=== PATIENT | female | born 1940 | race African-American/Black ===

== ENCOUNTER 2019-04-21 09:58 | Inpatient (IN) ==
--- NOTE | 2019-04-21 10:37 | Diag Imaging Result Doc PS360 ---
CHEST-PORTABLE - 04/21/2019 INDICATION: FLUID IN LUNGS COMPARISON: 01/28/2019 FINDINGS: There is probably a moderately large pleural effusion at the left lung base. There is a trace right pleural effusion. There is cardiomegaly and pulmonary vascular congestion. Opacity in the right midlung is indeterminate. There is a right chest port in good position. IMPRESSION: Trace right and moderate left pleural effusion. Significant cardiomegaly and pulmonary vascular congestion. Small indeterminate opacity in the right midlung. Electronically signed by Kerwin Magallon 04/21/2019 10:35 AM
[2019-04-21 11:03] LABS: BASO# 0.01 X1000 (0.0-0.2); BASO% 0.3 % (0.0-0.8); EOS# 0.08 X1000 (0.0-0.7); EOS% 2.7 % (0.0-10.0); HEMATOCRIT 34.6 % (37.0-47.0); LYMPH# 0.72 X1000 (1.2-3.4); LYMPH% 23.9 % (20.5-51.1); MCH 29.7 PG (27-31); MCHC 31.8 g/dL (33-37); MCV 93.5 FL (81-99); MONO# 0.49 X1000 (0.11-0.59); MONO% 16.3 % (1.7-9.3); MPV 9.7 FL (7.4-10.4); NEUT# 1.71 X1000 (1.4-6.5); NEUT% 56.8 % (42.2-75.2); PLT 283 X1000 (130-400); RDW 17.3 % (11.5-14.5); WBC 3.01 X1000 (4.8-10.8)
[2019-04-21 11:28] LABS: ALB/GLOB RATIO 1.4; ALBUMIN 2.9 g/dL (3.5-5.0); CALCIUM 7.3 mg/dL (8.8-10.2); CREATININE 1.1 mg/dL (0.5-0.9); POTASSIUM 4.3 mmol/L (3.5-5.1); TOTAL BILIRUBIN 0.38 mg/dL (0.20-1.00)
[2019-04-21 12:17] LABS: INR 0.99; PROTIME 13.9 Seconds (11.0-16.0)
[2019-04-21 12:18] LABS: PTT 32.4 Seconds (22.3-41.8)
--- NOTE | 2019-04-21 12:58 | EKG Report ---
Test Performed on : 04/21/2019 10:12:04 AM Test Reason : ED. No order in [place] Blood Pressure : / mmHG Vent. Rate : 086 BPM Atrial Rate : 086 BPM P-R Int : 106 ms QRS Dur : 126 ms QT Int : 380 ms P-R-T Axes : -08 -18 016 degrees QTc Int : 454 ms Sinus rhythm. with short CT Right bundle branch block Abnormal ECG When compared with ECG of 18-JUN-2018 08:38, CT interval has decreased Unconfirmed Result
--- NOTE | 2019-04-21 13:10 | PROVIDER DOCUMENTATION ---
This chart was entered by Tsering Cummins Scribe, acting as scribe for Ginny Altman MD. HPI-Respiratory General - General Chief Complaint: Shortness of Breath Stated Complaint: SOB,FLUID BUILD UP /LUNG Time Seen by Provider: 04/21/19 10:06 Source: patient Allergies/Adverse Reactions: Patient Allergies Allergy/AdvReac Type Severity Reaction Status Date / Time codeine Allergy Mild ITCHING Verified 04/21/19 10:45 Home Medications: Home Medication List Medication Instructions Recorded Confirmed Last Taken Type Alprazolam 1 mg PO PRN PRN 02/18/15 04/21/19 01/27/19 16:00 History 1 Chlorthalidone 0.5 tab PO DAILY 12/17/16 04/21/19 04/20/19 History Calcium & Magnesium Carbonate 120 mg PO DAILY 01/14/19 04/21/19 01/27/19 08:00 History [Antacid Gelcap] 120 Cetirizine [Zyrtec] 10 mg PO DAILY 01/14/19 04/21/19 04/20/19 History Cholecalciferol (Vitamin D3) 2,000 unit PO DAILY 01/14/19 04/21/19 01/27/19 08:00 History [D3-2000] 1999 Cyanocobalamin (Vitamin B-12) 1,000 mcg INJ DIRECTED 01/14/19 04/21/19 01/21/19 History [Vitamin B-12] 1000 Hydrocodone/Acetaminophen [[place] 1 ea PO PRN PRN 01/25/19 04/21/19 04/21/19 H istory 7.5-325 Tablet] Mv, Min #36/Iron,Carbonyl/FA 1 ea PO DAILY 01/25/19 04/21/19 04/20/19 History [Geritol Complete Tablet] Fluticasone 27.5 Mcg Nasal Spr 1 spray INH PRN PRN 04/21/19 04/21/19 Unknown History [Veramyst Nasal [place]] Metoclopramide [Reglan] 1 tab PO Q6H PRN 04/21/19 04/21/19 Unknown History Mirtazapine 1 tab PO QHS 04/21/19 04/21/19 04/20/19 History Promethazine [Phenergan] 1 tab PO Q6H PRN 04/21/19 04/21/19 Unknown History Zolpidem [Ambien] 1 tab PO Q 04/21/19 04/21/19 04/20/19 History - History of Present Illness-Resp Nature of Presenting Problem: Patient is a 78 year old female who presents with shortness of breath. States shortness of breath has gradually worsened. Report history of breast cancer which is monitored by Dr. Gonzalez. States having 9 rounds of chemo. Family states patient had a chest tube 5 weeks ago placed by Dr. Chou due to fluid build up on right lung. Denies fever. States seeing Dr. Gonzalez and Dr. Chou yesterday. Quality of Pain: reports: tightness Severity in ED: reports: mild Onset/Duration: reports: gradual Timing: reports: still present, getting worse Associated Symptoms: reports: shortness of breath Similar Symptoms Previously?: Yes Recently seen or treated by another doctor?: Yes Review of Systems - Adult - REVIEW OF SYSTEMS - ADULT Constitutional: reports: no symptoms reported. denies: chills, fever, fatique Eyes: reports: no symptoms reported Ears, Nose, Mouth & Throat: reports: no symptoms reported Cardiovascular: reports: no symptoms reported. denies: chest pain, irregular heart rate, palpitations Respiratory: reports: see HPI, shortness of breath. denies: cough, wheezing Gastrointestinal: reports: no symptoms reported Genitourinary: reports: no symptoms reported Musculoskeletal: reports: no symptoms reported Integumentary: reports: no symptoms reported Neurological: reports: no symptoms reported Psychiatric: reports: no symptoms reported Endocrine: reports: no symptoms reported Hematologic/Lymphatic: reports: no symptoms reported Allergic/Immunologic: reports: no symptoms reported All Other Systems: Reviewed and Negative Past History - Adult - PAST MEDICAL HISTORY-ADULT Review of Records: reports: Old Records Reviewed, Nursing Assessment Review, Medications Reviewed, Social history reviewed & non-contributory. Major Childhood Illnesses: reports: denies history Cardiovascular: reports: HTN Respiratory: reports: denies history Gastrointestinal: reports: denies history Obstetrical/Gynecological: reports: denies history Genitourinary: reports: kidney disease Musculoskeletal: reports: denies history Neurological: reports: denies history Psychiatric: reports: denies history Endocrine/Immune: reports: denies history Other Conditions: reports: other cancer (breast) - PRIOR SURGERIES/PROCEDURES Surgical/Procedure History: reports: appendectomy, cholecystectomy, hysterectomy , joint replacement (bilateral knees and hips), gastric bypass, other (cataract) - IMMUNIZATION STATUS Childhood Immunizations: See Nurse Assessment Flu Vaccine: See Nurse Assessment - FAMILY HISTORY Family History: aortic disease - SOCIAL HISTORY Smoking: denies Substance Use: denies Living Situation: family Physical Exam-General - PHYSICAL EXAM-ADULT Initial Vital Signs Reviewed: Yes - CONSTITUTIONAL General Appearance: alert, no apparent distress. negative: lethargic - HEAD, EARS, NOSE, MOUTH & THROAT HENMT: normocephalic/atraumatic, moist mucous membranes. negative: angioedema - RESPIRATORY Respiratory: chest non-tender, decreased breath sounds (bilateral), other (port to right side chest). negative: respiratory distress, crackles, rhonchi - CARDIOVASCULAR Cardiovascular: normal peripheral pulses, regular rate, rhythm. negative: tachycardia - GASTROINTESTINAL (ABDOMEN) Abdominal Exam: normal bowel sounds, non tender, soft. negative: guarding - MUSCULOSKELETAL Extremity: non-tender, other (swelling to bilateral lower extremities). negative: deformity, erythema - SKIN Integumentary: normal color, normal turgor, warm/dry. negative: cyanosis, ecchymosis, erythema, rash - NEUROLOGIC Neurologic: grossly normal. negative: aphasia, facial droop - PSYCHIATRIC Psych/Mental Status: normal mood/affect, oriented x 3. negative: anxious Progress - PLAN OF CARE/RESULTS Progress/Plan/Lab Results: Vital Signs - 8 hr 04/21/19 10:06 04/21/19 10:13 04/21/19 10:17 Temperature 98.4 F Pulse Rate 92 H 82 Respiratory Rate 17 19 Blood Pressure 182/83 212/107 O2 Sat by Pulse Oximetry 94 L 97 98 04/21/19 10:30 04/21/19 10:43 04/21/19 11:00 Temperature Pulse Rate 80 80 80 Respiratory Rate 29 H 24 21 Blood Pressure 231/95 O2 Sat by Pulse Oximetry 98 96 96 04/21/19 11:01 04/21/19 11:30 04/21/19 11:31 Temperature Pulse Rate 73 75 78 Respiratory Rate 13 25 H 13 Blood Pressure 231/93 200/98 O2 Sat by Pulse Oximetry 96 95 96 Laboratory Results - last 24 hr 04/21/19 04/21/19 04/21/19 10:42 10:42 11:59 WBC 3.01 L RBC 3.70 L Hgb 11.0 L Hct 34.6 L MCV 93.5 MCH 29.7 MCHC 31.8 L RDW Std Deviation 17.3 H Plt Count 283 MPV 9.7 Immature Gran % (Auto) 0.0 Neut % (Auto) 56.8 Lymph % (Auto) 23.9 Perkins % (Auto) 16.3 H Eos % (Auto) 2.7 Baso % (Auto) 0.3 Immature Gran # (Auto) 0.00 Neut # (Auto) 1.71 Lymph # (Auto) 0.72 L Perkins # (Auto) 0.49 Eos # (Auto) 0.08 Baso # (Auto) 0.01 PT 13.9 INR 0.99 PTT (Actin FS) 32.4 Sodium 140 Potassium 4.3 Chloride 110 H Carbon Dioxide 22 L Anion Gap 8 BUN 13 Creatinine 1.1 H Estimated GFR/1.73 m2 58 BUN/Creatinine Ratio 12 Glucose 82 Calculated Osmolality 279 Calcium 7.3 L Total Bilirubin 0.38 AST 36 H ALT 15 Alkaline Phosphatase 59 Total Protein 5.0 L Albumin 2.9 L Globulin 2.1 Albumin/Globulin Ratio 1.4 Orders Category Date Time Status Admit - [facility] Routine AdmDCTranf 04/21/19 13:16 Active Activity - Up with Assistance ORDERED Care 04/21/19 13:16 Active Intake and Output-Strict ORDERED Care 04/21/19 13:16 Active Nursing- Assist w/ IS as order ORDERED Care 04/21/19 13:16 Active Nursing- MD Consult Request ROUTINE Care 04/21/19 12:15 Active Nursing- MD Consult Request ROUTINE Care 04/21/19 13:16 Active Vital Signs Order Q 4-HR ASSESS Care 04/21/19 13:16 Active Z-Document. for Tele Applied ORDERED Care 04/21/19 13:16 Completed MD [Physician/Provider Consults] Routine Cons 04/21/19 12:14 Ordered Physician/Provider Consults Routine Cons 04/21/19 13:16 Ordered CHEST-PORTABLE [RAD] Stat Exams 04/21/19 10:22 Completed CBC WITH DIFF [HEME] Routine Lab 04/22/19 06:00 Ordered CBC WITH DIFF [HEME] Stat Lab 04/21/19 10:42 Completed COMPREHENSIVE METABOLIC PANEL [CHEM] Routine Lab 04/22/19 06:00 Ordered COMPREHENSIVE METABOLIC PANEL [CHEM] Stat Lab 04/21/19 10:42 Completed PT [PROTIME WITH INR] [COAG] Stat Lab 04/21/19 11:59 Completed PTT [COAG] Stat Lab 04/21/19 11:59 Completed Acetaminophen [Tylenol] Med 04/21/19 13:16 Active 650 mg PO Q6H PRN PRN Ondansetron [Zofran] Med 04/21/19 13:16 Active 4 mg IV Q4H PRN PRN Incentive Spirometer Routine Oth 04/21/19 13:16 Active Oxygen Device Routine Oth 04/21/19 13:16 Active Telemetry [OM.EQ] Routine Oth 04/21/19 13:16 Active Transfer/Admit Order [TRANSFER] Routine Transfer 04/21/19 12:13 Completed Result Diagrams: 04/21/19 10:42 04/21/19 10:42 - EKG 1 Time of EKG reading by physician:: 10:12 EKG Read and Signed by:: Ginny Altman EKG Interpretation (*Must complete 3 of following elements*): Abnormal Rate: 86 Rhythm: sinus rhythm with short [place]: normal QRS: RBB FL Interval: normal Comments: abnormal ECG - XRAY 1 XRAY Study: Chest Impression: See EMR Report ( CHEST-PORTABLE - 04/21/2019 INDICATION: FLUID IN LUNGS COMPARISON: 01/28/2019 FINDINGS: There is probably a moderately large pleural effusion at the left lung base. There is a trace right pleural effusion. There is cardiomegaly and pulmonary vascular congestion. Opacity in the right midlung is indeterminate. There is a right chest port in good position. IMPRESSION: Trace right and moderate left pleural effusion. Significant ca rdiomegaly and pulmonary vascular congestion. Small indeterminate opacity in the right midlung. Electronically signed by Kerwin Magallon 04/21/2019 10:35 AM 04/21/19 1035 Interpreting Physician: Kerwin Magallon MD Dictated Date/Time: 04/21/19 1034 cc: Ginny Altman MD; Dexter Reeves MD) - CONSULTS/PCP/HOSPITALIST Notification #1 *Consult/PCP/Hospitalist*: KANCHAN Rea for Hospitalist Time Discussed: 11:38 Reason/Comments: Dr. Altman consulted with Rona about patient. Consult Disposition: other (Rona states radiologist can do a thoracentesis.) #2 Consult: KANCHAN Rea for Hospitalist Time Discussed: 12:16 Reason/Comments: Dr. Altman consulted with Rona about patient. Consult Disposition: other (Rona states Dr. Gonzalez wants patient admitted and Dr. Stephenson to do a thoracentesis) Departure - Departure Date of Disposition Decision: 04/21/19 Time of Disposition Decision: 11:38 DIAGNOSIS: Pleural effusion, Dyspnea Disposition: ADMITTED INPATIENT 09 Certified Medical Emergency: Emergent Condition: Fair - Critical Care Note This patient required my direct & personal management of CC.: No Attestation - Physician/ MARY Attestation The physician spent face to face time with patient:: Yes Advanced Practice Provider documentation review:: Supervising physician onsite and consulted in the evaluation and care of this patient. The physician did have a face to face encounter with the patient. This chart was documented by the indicated scribe, (Tsering Cummins Scribe) and accurately reflects the services I performed and decisions made by Agapito iqbal Mai Huu, MD, as attested by the provider's signature.
[2019-04-21] MEDS ORDERED: ZOFRAN IV PRN (13:16)
[2019-04-21] MEDS ORDERED: TYLENOL PO PRN (13:16)
[2019-04-21] MEDS ORDERED: PATIENT'S OWN MED NAS PRN (15:05)
[2019-04-21] MEDS ORDERED: XANAX PO PRN (15:05)
[2019-04-21] MEDS ORDERED: REGLAN PO PRN (15:05)
[2019-04-21] MEDS ORDERED: NORCO-7.5 PO PRN (15:05)
[2019-04-21] MEDS ORDERED: NON-FORMULARY MED (Cyanocobalamin (Vitamin B-12) [Vitamin B-12] 1,000 MCG) INJ SCH (15:15)
--- NOTE | 2019-04-21 15:29 | HISTORY AND PHYSICAL ---
ONCOLOGIST: Dr. Gonzalez. PRIMARY CARE PROVIDER: Dexter Reeves MD. CHIEF COMPLAINT: Shortness of breath. HISTORY OF PRESENT ILLNESS: Ms. Lama is a 78-year-old female who carries a past medical history of metastatic left breast cancer with a metastatic pleural effusion on the right, status post PleurX catheter and discontinuation of PleurX catheter, chronic kidney disease stage 3, arthritis, hypertension, who was brought in to the ED by her daughter secondary to dyspnea on exertion. She had seen Dr. Gonzalez yesterday and was given instructions that if she continued to have worsening shortness of breath to come to the ED. Her last chemo was 2 weeks ago. Her next chemo is this coming Thursday. She also complained of hurting on the left side of her chest. No fever, chills, cough, nausea, vomiting, diarrhea, cardiac type chest pain, syncopal episodes. She did report intermittent lower extremity edema that is nonpitting. Workup in the ED revealed a trace right and moderate left pleural effusion, significant cardiomegaly and pulmonary vascular congestion. After speaking with Dr. Gonzalez, it was felt that the patient would need to be admitted and place another PleurX catheter drain. However, the patient is really not on board with having another PleurX catheter drain put in place. I did explain to her that she would need to come in for frequent draining if she did not have a drain in place. She will talk it over with Dr. Gonzalez as well as Dr. Stepehnson and her daughter who was at bedside. REVIEW OF SYSTEMS: Twelve-point review of systems completely negative except for those mentioned in HPI. PAST MEDICAL HISTORY: 1. 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 2. Hypertension. 3. Chronic kidney disease. 4. Arthritis. PAST SURGICAL HISTORY: 1. Placement of a right PleurX catheter that has since been discontinued, as well as placement of a right IJ Port-A-Cath. 2. Right-sided thoracentesis. 3. Gastric bypass surgery. 4. Bilateral hip arthroplasty. 5. Bilateral knee arthroplasty. SOCIAL HISTORY: She has a supportive daughter at the bedside. Denies any tobacco, alcohol, or illicit drug use. She is . FAMILY HISTORY: Noncontributory. ALLERGIES: Codeine. HOME MEDICATIONS: Have not been verified. PHYSICAL EXAMINATION: VITAL SIGNS: Temperature 97.9 degrees, heart rate 82, respirations 18, blood pressure was 190/78, O2 is 97% on room air. GENERAL: Ms. Lama is a 78-year-old female who is lying in bed, in no acute distress, complaining of being hungry. HEENT: Atraumatic, normocephalic. PERRL. NECK: Supple. Trachea midline. CARDIOVASCULAR: S1, S2 appreciated. No murmurs, gallops, rubs noted. RESPIRATORY: Lung sounds bilaterally decreased in the bases. No rales, rhonchi, or wheezes. GI: Soft, nontender, nondistended. Positive bowel sounds 4 quadrants. EXTREMITIES: She does have bilateral lower extremity edema that is nonpitting. NEUROLOGIC: She is awake, alert, and oriented. Follows commands. Moves all extremities. DIAGNOSTIC DATA: Chest x-ray: Trace right and a moderate left pleural effusion. Significant cardiomegaly and pulmonary vascular congestion. Small intermediate opacity in the right mid lung. White count is 3, hemoglobin and hematocrit 11 and 34, platelet count is 283,000. Sodium 140, potassium 4.3, BUN 13, creatinine 1.1, blood glucose is 82, AST 36. ASSESSMENT AND PLAN: 1. Known left metastatic breast cancer with a recurrent right pleural effusion that has now resolved. She now has a left malignant pleural effusion. She is status post PleurX drain catheter placement and removal. We have consulted Dr. Stephenson to see about placing another PleurX catheter drain. However, the patient is hesitant at the moment. We will have Dr. Gonzalez and Dr. Stephenson speak with her about the need for a drain. 2. Hypertension. Patient had recently been taken off her antihypertensives. 3. Chronic kidney disease, stable. 4. Arthritis. Aware. 5. Further recommendation to follow physician evaluation, laboratory and diagnostic data. Patient seen and examined by me face to face, all the laboratory, vitals and images were reviewed, patient presented to the emergency department with shortness of breath, that has been going on for a few days, she has a history of metastatic breast cancer, not to long ago she had a catheter placed on the right side of her thorax but has been removed already, but now she is having shortness of breath mostly with physical activity, X ray showed left pleural effusion, case has been discussed with Dr Gonzalez, surgery department will be consulted to probably put a drain on the left side, on my physical exam she is not in acute distress, has elevated blood pressure, decreased breath sounds on the left side with rales bilaterally at the bases, I agree with the rest of the GRANULATOR TENDER's assessment and plan, Porter Nugent MD. Dictated by KANCHAN Kendall for Porter Russell MD cc: MD Johnathan Dubois MD Matthew L. Figh, MD MTDD
[2019-04-21] MEDS: APRESOLINE IV PRN (16:03)
--- NOTE | 2019-04-21 17:16 | GENERAL SURGERY CONSULTATION ---
DATE: 04/21/2019 REQUESTING PHYSICIAN: Dr. Gonzalez. REASON FOR CONSULT: Left pleural effusion, likely malignant. HISTORY OF PRESENT ILLNESS: This is a 78-year-old female with a past medical history of metastatic left breast cancer and metastatic pleural effusion on the right side with a PleurX catheter placement and subsequent removal. She also has chronic kidney disease, arthritis, hypertension. She was brought to the emergency department by her daughter for shortness of breath. She had seen Dr. Gonzalez yesterday for this. She has been on chemo. She does report hurting in her back and her chest pain. She was seen and had a chest x-ray showed worsening effusions on the left side. Dr. Gonzalez thought she needed to be admitted to have her PleurX catheter placed. I have discussed the case with Dr. Gonzalez. She is doing okay right now. PAST MEDICAL HISTORY: 1. Metastatic breast cancer. 2. Hypertension. 3. Chronic kidney disease. 4. Arthritis. PAST SURGICAL HISTORY: Right-sided thoracentesis, right-sided PleurX catheter and removal, gastric bypass, bilateral hip surgery, bilateral knee surgery. SOCIAL HISTORY: Lives with daughter. FAMILY HISTORY: Reviewed with patient and noncontributory. ALLERGIES: Codeine. HOME MEDICATIONS: Reviewed. REVIEW OF SYSTEMS: A full 10 point review of systems obtained. Negative except as specified in HPI. PHYSICAL EXAMINATION: Vital Signs: Patient is currently afebrile. Her vital signs are stable. General: No acute distress. Alert, interactive, chronically ill female, looks stated age. HEENT: Normocephalic, atraumatic. Pupils equal, round, reactive to light. Mucous membranes moist. Oropharynx benign. Neck: Supple. Trachea midline. Cardiovascular: Regular rate and rhythm. Lungs: Some decreased breath sounds on the left. No increased labored breathing. Abdomen: Soft, nontender, nondistended. Extremities: Moves all extremities. Neurologic: Grossly intact. Skin: No signs of jaundice. Vascular: All extremities perfused. LABORATORY: Reviewed. Chest x-ray reviewed. ASSESSMENT AND PLAN: This is a 78-year-old female with malignant left pleural effusion. Malignant left pleural effusion. At this time, we will plan on placing a PleurX catheter. The patient has been through it before, she is aware. We discussed the risks, benefits, alternatives. We will plan on doing this tomorrow. We will keep her NPO after midnight and schedule the surgery for the morning. cc: Akira Stephesnon MD MTDD
[2019-04-21] MEDS ORDERED: AMBIEN PO SCH (21:00)
[2019-04-21] MEDS ORDERED: REMERON PO SCH (21:00)
--- NOTE | 2019-04-22 06:32 | GENERAL SURGERY PROGRESS NOTE ---
DATE: 04/22/2019 SUBJECTIVE: Patient seems to be doing okay. No major changes. OBJECTIVE: Vital signs: Patient is currently afebrile. Her vital signs are stable. General exam: No acute distress. HEENT: Normocephalic, atraumatic. Pupils equal, round, reactive to light. Mucous membranes moist. Oropharynx benign. Neck: Supple. Trachea midline. Cardiovascular: Regular rate and rhythm. Lungs: Decreased breath sounds noted on the left. No increased labored breathing. Abdomen: Soft, nontender, nondistended. Extremities: Moves all extremities. Neurologic: Grossly intact. Skin: No signs of jaundice. Vascular: All extremities perfused. LABORATORY: None this morning. ASSESSMENT AND PLAN: A 78-year-old female with recurrent left-sided possible malignant effusion. Effusion on the left. Will plan on placement of a PleurX catheter today. The risks, benefits, and alternatives were discussed. Consent will be obtained from the patient. Will plan on surgical intervention today. cc: Akira Stephenson MD
[2019-04-22 06:44] LABS: BASO# 0.01 X1000 (0.0-0.2); BASO% 0.3 % (0.0-0.8); EOS% 3.2 % (0.0-10.0); HEMATOCRIT 36.2 % (37.0-47.0); HEMOGLOBIN 11.6 g/dL (12.0-16.0); LYMPH# 0.71 X1000 (1.2-3.4); LYMPH% 23.1 % (20.5-51.1); MCV 93.5 FL (81-99); MONO# 0.57 X1000 (0.11-0.59); MONO% 18.5 % (1.7-9.3); MPV 9.8 FL (7.4-10.4); NEUT# 1.69 X1000 (1.4-6.5); NEUT% 54.9 % (42.2-75.2); PLT 299 X1000 (130-400); RBC 3.87 XMIL (4.2-5.4); RDW 17.2 % (11.5-14.5); WBC 3.08 X1000 (4.8-10.8)
[2019-04-22 07:02] LABS: AGAP 11; ALBUMIN 2.8 g/dL (3.5-5.0); ALKALINE PHOSPHATASE 61 U/L (32-104); BUN 12 mg/dL (8-22); CALCIUM 7.9 mg/dL (8.8-10.2); CHLORIDE 111 mmol/L (98-107); COSMO 284; ESTIMATED GFR > 60; GLUCOSE 80 mg/dL (70-104); GOT 29 U/L (10-30); GPT 15 U/L (10-36); POTASSIUM 3.7 mmol/L (3.5-5.1); SODIUM 143 mmol/L (136-145); TCO2 21 mmol/L (25-35); TOTAL BILIRUBIN 0.39 mg/dL (0.20-1.00); TOTAL PROTEIN 5.7 g/dL (6.3-8.3)
[2019-04-22 08:07] LABS: BILIRUBIN URINE NEGATIVE (NEGATIVE); BLOOD URINE NEGATIVE (NEGATIVE); COLOR STRAW; GLUCOSE URINE NEGATIVE (NEGATIVE); KETONE URINE NEGATIVE (NEGATIVE); LEUKOCYTES URINE NEGATIVE (NEGATIVE); NITRITE URINE NEGATIVE (NEGATIVE); PH URINE 7.5; PROTEIN URINE NEGATIVE (NEGATIVE); SP GRAVITY URINE 1.007; TURBIDITY URINE CLEAR (CLEAR); URINE SOURCE CLEAN CATCH; UROBILINOGEN URINE NORMAL (NORMAL)
[2019-04-22 08:09] LABS: UR EPITHELIAL CELLS <10 /HPF (<10); URINE BACTERIA NEGATIVE /HPF; URINE RBC <10 /HPF (<10); URINE WBC <10 /HPF (<10)
[2019-04-22] MEDS ORDERED: FENTANYL ONE (08:52)
[2019-04-22] MEDS ORDERED: DIPRIVAN 1% ONE (08:53)
[2019-04-22] MEDS ORDERED: KEFZOL 1 GM/D5W 1 GM/50 ML IVPB IV ONE (09:00)
[2019-04-22] MEDS ORDERED: HYGROTON PO SCH (09:00)
[2019-04-22] MEDS ORDERED: VITAMIN D PO SCH (09:00)
[2019-04-22] MEDS: DILAUDID ONE ×2 (11:02→11:13)
[2019-04-22] MEDS: APRESOLINE IV PRN (11:49)
--- NOTE | 2019-04-22 13:17 | OPERATIVE NOTE ---
PROCEDURE DATE: 04/22/2019 PREOPERATIVE DIAGNOSIS: Left pleural effusion, likely malignant. POSTOPERATIVE DIAGNOSIS: Left pleural effusion, likely malignant. PROCEDURE: Left PleurX catheter placement. SURGEON: Akira Stephenson MD. MEASUREMENT ANALYST: None. ANESTHESIA: General tracheal. INTRAOPERATIVE FINDINGS: Over a liter of bloody fluid drained from the chest. ESTIMATED BLOOD LOSS: 5 mL. SPECIMEN REMOVED: Fluid. BRIEF HISTORY: A 78-year-old female with metastatic breast cancer. She had recurrent effusions on left side so was admitted for drainage and PleurX catheter. The risks, benefits, and alternatives were discussed. All questions answered. DESCRIPTION OF PROCEDURE: After informed consent was obtained, the patient brought to the operative theatre, transferred to the operating table, placed in supine position. General endotracheal anesthesia was then performed without complication. A formal time-out was then performed confirming patient, date and procedure. All were in agreement. At that time, attention directed to the left chest. In the anterior axillary line at the 5th intercostal space, we used local anesthetic to anesthetize the skin, made a small stab incision. I directed a needle into the chest, aspirated bloody fluid, passed a wire into it. We then created and tunneled the PleurX catheter from the inferior part of the anterior axillary line on the left side to that initial insertion site, exchanged it over the wire in the typical Seldinger technique to place the catheter in the chest, connected to the vacuum canister and drained over a liver out of fluid. We secured it in place in a standard fashion and placed a sterile dressing. The patient tolerated procedure. cc: Akira Stephenson MD
[2019-04-22 14:36] VITALS: BP 106/54
--- NOTE | 2019-04-23 06:01 | DISCHARGE SUMMARY ---
ADMISSION DATE: 04/21/2019 DISCHARGE DATE: 04/22/2019 DISCHARGE DIAGNOSES: 1. Large left pleural effusion status post left PleurX catheter placement. 2. Left metastatic breast cancer with recurrent right pleural effusion that has now resolved. 3. Hypertension. 4. Chronic kidney disease. 5. Arthritis. PROCEDURES PERFORMED: Chest x-ray dated 04/21/2019. Impression: Trace right and moderate left pleural effusion, significant cardiomegaly and pulmonary vascular congestion, small indeterminate opacity in the right mid lung, left pleural effusion, status post left PleurX catheter placement dated 04/22/2019. HOSPITAL COURSE: A 78-year-old female with a past medical history of metastatic breast cancer with reported pleural effusion mostly on the right side status post PleurX catheter at discontinuation of this catheter before. Also, CKD stage 3, arthritis and hypertension admitted on 04/21/2019. She was brought to the emergency department by her brother secondary to shortness of breath mostly during physical activity. She had seen Dr. Gonzalez the day before yesterday. I was given instructions that if she continues to have worsening shortness of breath to come to the ED. She also complained of hurting on the left side of the chest. No fever. No chills. No cough, nausea, vomiting, diarrhea, cardiac type chest pain, or syncopal episode. She did report intermittent lower extremity edema that is nonpitting. A workup in the emergency department showed a moderate left pleural effusion, significant cardiomegaly, and pulmonary vascular congestion. We notified Dr. Gonzalez about these findings and he requested to hospitalize the patient, and ask Surgery to place a PleurX catheter which has been placed today without any kind of complication. It looks like over a L of bloody fluid has been drained at the moment of the drain placement. She is feeling much better. I had a conversation with Dr. Gonzalez and also Dr. Stephenson about this patient today. We have decided to discharge this patient home with follow-up by both Surgery Department and Hematology/Oncology Department. I already talked to the social problems specialist, and home health has been set up already so they can take care of the drain. PHYSICAL EXAMINATION: Temperature 97.9 degrees, pulse 85, respiratory rate 16, blood pressure 128/56, oxygen saturation 100% on room air. HEENT: Head normocephalic. No trauma. PERRLA. Neck: Supple. No JVD. No masses. Central trachea. Chest: Clear to auscultation. No wheezing. No rales. Abdomen: Soft, nontender, and nondistended. No hepatosplenomegaly. Chest: Clear to auscultation. There is some crepitus at the bases with the left PleurX catheter that looks fine. No signs of bleeding or drainage around it. There is nonpitting edema bilaterally. Neurological: The patient is awake, alert, and oriented. She is following commands. She moves all 4 extremities. She is able to recognize family members at the bedside. LABORATORY: WBC 3, hemoglobin 11.6, hematocrit 36.2, and platelet 299,000. Sodium 143, potassium 3.7, chloride 111, bicarbonate 21, BUN 12, creatinine 1, glucose 80, calcium 7.9, and albumin 2.8. DISCHARGE MEDICATIONS: 1. Alprazolam 1 mg p.o. as needed. 2. Calcium and magnesium carbonate 120 mg p.o. daily. 3. Cetirizine 10 mg p.o. daily. 4. Chlorthalidone 12.5 mg p.o. daily. 5. Vitamin D3 2000 units p.o. daily. 6. Vitamin B12 1000 mcg injectable as directed. 7. Fluticasone 27.5 mcg nasal spray as needed. Senath 7.5/325 tablets every 8 hours as needed. 8. Reglan 1 tablet p.o. q.6 hours as needed nausea and vomiting. 9. Mirtazapine 50 mg p.o. at bedtime. 10. Geritol Complete tablet p.o. daily. 11. Phenergan 25 mg p.o. q.6 hours as needed for nausea and vomiting. 12. Ambien 10 mg p.o. at bedtime. TIME SPENT: Time discharging this patient 25 minutes. cc: Porter Russell MD
== END 2019-04-22 15:43 | disposition home health service (06) | DRG 598 ==
LOC: ED 09:58 → 4N 12:42
PROVIDERS: ATTEND Internal Medicine
CPT/HCPCS: 71010; 71045; 80053; 81001; 85025; 85610; 85730; 93005; 94761; 94799; 99285; A9270; C1729; J0360; J0690; J1170; J3010

== ENCOUNTER 2019-05-31 00:24 | Inpatient (IN) ==
[2019-05-31 03:00] LABS: BASO# 0.01 X1000 (0.0-0.2); BASO% 0.3 % (0.0-0.8); EOS# 0.02 X1000 (0.0-0.7); EOS% 0.6 % (0.0-10.0); HEMATOCRIT 42.8 % (37.0-47.0); HEMOGLOBIN 13.6 g/dL (12.0-16.0); LYMPH# 0.32 X1000 (1.2-3.4); LYMPH% 9.6 % (20.5-51.1); MCH 29.8 PG (27-31); MCHC 31.8 g/dL (33-37); MCV 93.7 FL (81-99); MONO# 0.11 X1000 (0.11-0.59); MONO% 3.3 % (1.7-9.3); MPV 10.4 FL (7.4-10.4); NEUT# 2.86 X1000 (1.4-6.5); NEUT% 86.2 % (42.2-75.2); PLT 312 X1000 (130-400); RBC 4.57 XMIL (4.2-5.4); RDW 15.4 % (11.5-14.5); WBC 3.32 X1000 (4.8-10.8)
[2019-05-31] MEDS ORDERED: LEVAQUIN 750 MG/D5W 750 MG/150 ML IVPB IV ONE (03:22)
--- NOTE | 2019-05-31 03:22 | PROVIDER DOCUMENTATION ---
This chart was entered by Megha Morrow Scribe, acting as scribe for Berna Mendoza DO. HPI-Respiratory General - General Chief Complaint: Shortness of Breath Stated Complaint: sob Time Seen by Provider: 05/31/19 01:05 Source: patient Allergies/Adverse Reactions: Patient Allergies Allergy/AdvReac Type Severity Reaction Status Date / Time codeine Allergy Mild ITCHING Verified 05/31/19 02:49 Home Medications: Home Medication List Medication Instructions Recorded Confirmed Last Taken Type Alprazolam 1 mg PO PRN PRN 02/18/15 05/31/19 01/27/19 16:00 History 1 Calcium & Magnesium Carbonate 120 mg PO DAILY 01/14/19 05/31/19 01/27/19 08:00 History [Antacid Gelcap] 120 Cetirizine [Zyrtec] 10 mg PO DAILY 01/14/19 05/31/19 04/20/19 History Cholecalciferol (Vitamin D3) 2,000 unit PO DAILY 01/14/19 05/31/19 01/27/19 08:00 History [D3-2000] 1999 Cyanocobalamin (Vitamin B-12) 1,000 mcg INJ DIRECTED 01/14/19 05/31/19 History [Vitamin B-12] 1000 Mv, Min #36/Iron,Carbonyl/FA 1 ea PO DAILY 01/25/19 05/31/19 04/20/19 History [Geritol Complete Tablet] Fluticasone 27.5 Mcg Nasal Spr 1 spray INH PRN PRN 04/21/19 05/31/19 Unknown History [Veramyst Nasal Nicolaus] Metoclopramide [Reglan] 1 tab PO Q6H PRN 04/21/19 05/31/19 Unknown History Mirtazapine 1 tab PO QHS 04/21/19 05/31/19 04/20/19 History Promethazine [Phenergan] 1 tab PO Q6H PRN 04/21/19 05/31/19 Unknown History Zolpidem [Ambien] 1 tab PO QHS 04/21/19 05/31/19 04/20/19 History Chlorthalidone [Hygroton] 12.5 mg PO DAILY tab 04/22/19 05/31/19 Unknown Rx Hydrocodone/Acetaminophen [Laurel 1 ea PO PRN PRN #30 tab 04/22/19 05/31/19 Unknown Rx 7.5-325 Tablet] Albuterol Sulfate Inhaler 1 - 2 puff PO X PRN PRN 05/31/19 05/31/19 Unknown History [Ventolin Hfa] Furosemide 40 mg PO DAILY 05/31/19 05/31/19 05/30/19 History 1 tab Potassium Chloride 1 tab PO DAILY 05/31/19 05/31/19 Unknown History - History of Present Illness-Resp Nature of Presenting Problem: 78 yof c/o sudden onset sob upon waking up tonight. pt arrived via ems. sts worse on exertion. pt has hx of left breast cancer. pt had last tx on . denies cp, fever and chills. She has a pleurovac in place on the left but states only "a tsp" out of it yesterday. She has a H/O metastatic breast CA and is on chemotherapy. Severity in ED: reports: mild Onset/Duration: reports: abrupt, just prior to arrival Modifying Factors: improves with: exertion Associated Symptoms: reports: short of breath. denies: chest pain/soreness Review of Systems - Adult - REVIEW OF SYSTEMS - ADULT Constitutional: reports: no symptoms reported. denies: fever, fatique, night sweats Eyes: reports: no symptoms reported Ears, Nose, Mouth & Throat: reports: no symptoms reported Cardiovascular: reports: no symptoms reported. denies: chest pain, orthopnea, palpitations Respiratory: reports: see HPI, dyspnea on exertion, shortness of breath. denies: cough, excessive sputum production, hemoptysis, wheezing Gastrointestinal: reports: no symptoms reported Genitourinary: reports: no symptoms reported Musculoskeletal: reports: no symptoms reported Integumentary: reports: no symptoms reported Neurological: reports: no symptoms reported Psychiatric: reports: no symptoms reported Endocrine: reports: no symptoms reported Hematologic/Lymphatic: reports: no symptoms reported Allergic/Immunologic: reports: no symptoms reported All Other Systems: Reviewed and Negative Past History - Adult - PAST MEDICAL HISTORY-ADULT Review of Records: reports: Old Records Reviewed, Nursing Assessment Review, Medications Reviewed, Social history reviewed & non-contributory. Major Childhood Illnesses: reports: denies history Cardiovascular: reports: HTN Respiratory: reports: denies history Gastrointestinal: reports: denies history Obstetrical/Gynecological: reports: denies history Genitourinary: reports: kidney disease Musculoskeletal: reports: denies history Neurological: reports: denies history Psychiatric: reports: denies history Endocrine/Immune: reports: denies history Other Conditions: reports: other cancer (breast) - PRIOR SURGERIES/PROCEDURES Surgical/Procedure History: reports: appendectomy, cholecystectomy, hysterectomy , indwelling device, joint replacement (bilateral knees and hips), gastric bypass, other (cataract) - IMMUNIZATION STATUS Childhood Immunizations: See Nurse Assessment Flu Vaccine: See Nurse Assessment - FAMILY HISTORY Family History: aortic disease - SOCIAL HISTORY Smoking: non-smoker Substance Use: none/never Physical Exam-General - PHYSICAL EXAM-ADULT Initial Vital Signs Reviewed: Yes - CONSTITUTIONAL General Appearance: appears well, alert, no apparent distress - EYES Eyes: PERRL/EOMI, pink conjunctivae - HEAD, EARS, NOSE, MOUTH & THROAT HENMT: normocephalic/atraumatic, moist mucous membranes - NECK Neck: non-tender, full range of motion, supple - RESPIRATORY Respiratory: chest non-tender, lungs clear, no pleuratic chest pain, no respiratory distress, no accessory muscle use, decreased breath sounds (di minished on rt side, left side clear.). negative: normal breath sounds, respiratory distress, stridor, wheezing - CARDIOVASCULAR Cardiovascular: normal peripheral pulses, regular rate, rhythm - GASTROINTESTINAL (ABDOMEN) Abdominal Exam: normal bowel sounds, non tender, soft - LYMPHATIC Lymphatic: no adenopathy - MUSCULOSKELETAL Back Exam: normal inspection, no CVA tenderness, no vertebral tenderness Extremity: normal range of motion, non-tender, normal inspection Peripheral Pulses: radial (R): 2+, radial (L): 2+ - SKIN Integumentary: normal color, normal turgor, warm/dry - NEUROLOGIC Neurologic: grossly normal, no motor/sensory deficits - PSYCHIATRIC Psych/Mental Status: normal mood/affect, normal thought content, normal thought process, oriented x 3 Progress - PLAN OF CARE/RESULTS Progress/Plan/Lab Results: Vital Signs - 8 hr 05/31/19 00:27 Temperature 97.6 F Pulse Rate 94 H Respiratory Rate 24 Blood Pressure 179/115 O2 Sat by Pulse Oximetry 96 Laboratory Results - last 24 hr 05/31/19 05/31/19 05/31/19 02:32 02:32 02:32 WBC 3.32 L RBC 4.57 Hgb 13.6 Hct 42.8 MCV 93.7 MCH 29.8 MCHC 31.8 L RDW Std Deviation 15.4 H Plt Count 312 MPV 10.4 Immature Gran % (Auto) 0.0 Neut % (Auto) 86.2 H Lymph % (Auto) 9.6 L Hartley % (Auto) 3.3 Eos % (Auto) 0.6 Baso % (Auto) 0.3 Immature Gran # (Auto) 0.00 Neut # (Auto) 2.86 Lymph # (Auto) 0.32 L Hartley # (Auto) 0.11 Eos # (Auto) 0.02 Baso # (Auto) 0.01 Sodium 140 Potassium 5.1 Chloride 102 Carbon Dioxide 22 L Anion Gap 16 BUN 26 H Creatinine 1.1 H Estimated GFR/1.73 m2 58 BUN/Creatinine Ratio 24 Glucose 101 Calculated Osmolality 284 Calcium 9.3 Total Bilirubin 0.34 AST 57 H ALT 29 Alkaline Phosphatase 96 Troponin T 0.066 Total Protein 6.3 Albumin 3.2 L Globulin 3.1 Albumin/Globulin Ratio 1.0 Orders Category Date Time Status CHEST-1 VIEW [RAD] Stat Exams 05/31/19 01:25 Taken BLOOD CULTURE [BLDCUL] Stat Lab 05/31/19 04:13 Uncollected CBC WITH ELECTRONIC DIFF [HEME] Stat Lab 05/31/19 02:32 Completed COMPREHENSIVE METABOLIC PANEL [CHEM] Stat Lab 05/31/19 02:32 Completed ROUTINE CULTURE [RM] Stat Lab 05/31/19 04:11 Uncollected TROPONIN T Stat Lab 05/31/19 02:32 Completed Albuterol Sulfate Inhaler [Ventolin Hfa] Med 05/31/19 04:13 Active 1 - 2 puff INH 4XDAY PRN PRN Alprazolam [Xanax] Med 05/31/19 04:13 Pending 1 mg PO PRN PRN Calcium Carbonate Chew [Tums] Med 05/31/19 09:00 Active 500 mg PO DAILY CefEPIME [Maxipime] 1 gm Med 05/31/19 04:15 Active 0.9% Sodium Chloride Inj [Ns] 50 ml IV Q12H Cetirizine [Zyrtec] Med 05/31/19 09:00 Active 10 mg PO DAILY Chlorthalidone [Hygroton] Med 05/31/19 09:00 Active 12.5 mg PO DAILY Cholecalciferol (Vit D3) [Vitamin D] Med 05/31/19 09:00 Active 2,000 unit PO DAILY Cyanocobalamin (Vitamin B-12) [Vitamin B-12] Med 05/31/19 04:15 Pending 1,000 mcg INJ DIRECTED Fluticasone 27.5 Mcg Nasal Spr [Veramyst Nasal Nicolaus] Med 05/31/19 04:13 Pending 1 sprays RAYRAY PRN PRN Furosemide [Lasix] Med 05/31/19 09:00 Active 40 mg PO DAILY Hydrocodone/APAP 7.5 mg/325 mg [Laurel-7.5] Med 05/31/19 04:22 Discontinued 1 each PO NOW ONE Hydrocodone/APAP 7.5 mg/325 mg [Laurel-7.5] Med 05/31/19 04:13 Pending DOSE each PO PRN PRN Levofloxacin 750 mg/D5w [Levaquin 750 mg/D5w] Med 05/31/19 03:22 Discontinued 750 mg in 150 ml IV NOW Metoclopramide [Reglan] Med 05/31/19 04:13 Active 10 mg PO Q6H PRN PRN Mirtazapine [Remeron] Med 05/31/19 21:00 Active 15 mg PO QHS Multivitamins/Minerals [Centrum Silver] Med 05/31/19 09:00 Active 1 each PO DAILY Pharmacy Order [Vancomycin IV Per Pharmacy] Med 05/31/19 04:15 Active 1 each MISC DIRECTED Potassium Chloride E.r. [Klor-Con] Med 05/31/19 09:00 Active 20 meq PO DAILY Promethazine [Phenergan] Med 05/31/19 04:13 Active 25 mg PO Q6H PRN PRN Zolpidem [Ambien] Med 05/31/19 21:00 Active 10 mg PO QHS MDI Treatments Stat Oth 05/31/19 04:14 Active EKG [EKG] Stat Ther 05/31/19 01:25 Draft Transfer/Admit Order [TRANSFER] Routine Transfer 05/31/19 04:15 Ordered Clinically stable while here. She has developed LLL pna in addition to her previously existing left pleural effusion. She was treated with Levaquin and admitted to the hospitalist service. Result Diagrams: 05/31/19 02:32 05/31/19 02:32 Departure - Departure Date of Disposition Decision: 05/31/19 Time of Disposition Decision: 03:00 DIAGNOSIS: Pneumonia Qualifiers: Pneumonia type: due to unspecified organism Laterality: left Lung location: lower lobe of lung Qualified Code(s): J18.1 - Lobar pneumonia, unspecified organism Disposition: ADMITTED INPATIENT 09 Certified Medical Emergency: Emergent Condition: Fair - Critical Care Note This patient required my direct & personal management of CC.: No Attestation - Physician/ MARY Attestation Patient care was provided by Advanced Practice Provider:: No The physician spent face to face time with patient:: Yes Advanced Practice Provider documentation review:: Supervising physician onsite and consulted in the evaluation and care of this patient. The physician did have a face to face encounter with the patient. This chart was documented by the indicated scribe, (Megha Morrow Scribe) and accurately reflects the services I performed and decisions made by me, Berna Mendoza DO, as attested by the provider's signature.
[2019-05-31 03:45] LABS: ALBUMIN 3.2 g/dL (3.5-5.0); CALCIUM 9.3 mg/dL (8.8-10.2); CREATININE 1.1 mg/dL (0.5-0.9); POTASSIUM 5.1 mmol/L (3.5-5.1); TOTAL BILIRUBIN 0.34 mg/dL (0.20-1.00); TOTAL PROTEIN 6.3 g/dL (6.3-8.3)
[2019-05-31] MEDS ORDERED: XANAX PO PRN (04:13)
[2019-05-31] MEDS ORDERED: NORCO-7.5 PO PRN ×2 (04:13→11:36)
[2019-05-31] MEDS ORDERED: REGLAN PO PRN (04:13)
[2019-05-31] MEDS ORDERED: PHENERGAN PO PRN (04:13)
[2019-05-31] MEDS ORDERED: FLONASE NAS PRN (04:13)
[2019-05-31] MEDS ORDERED: NON-FORMULARY MED (Cyanocobalamin (Vitamin B-12) [Vitamin B-12] 1,000 MCG) INJ SCH (04:15)
[2019-05-31] MEDS ORDERED: VANCOMYCIN IV PER PHARMACY MISC SCH (04:15)
[2019-05-31] MEDS ORDERED: NORCO-7.5 PO ONE (04:22)
--- NOTE | 2019-05-31 05:15 | EKG Report ---
Test Performed on : 05/31/2019 02:37:21 AM Test Reason : sob Blood Pressure : / mmHG Vent. Rate : 093 BPM Atrial Rate : 093 BPM P-R Int : 136 ms QRS Dur : 126 ms QT Int : 390 ms P-R-T Axes : 018 243 022 degrees QTc Int : 484 ms Normal sinus rhythm. Right bundle branch block Abnormal ECG When compared with ECG of 21-APR-2019 10:12, (Unconfirmed) No significant change was found Unconfirmed Result
--- NOTE | 2019-05-31 06:22 | HISTORY AND PHYSICAL ---
CHIEF COMPLAINT: Shortness of breath. HISTORY OF PRESENT ILLNESS: Ms. Lama is a 78-year-old -Citizen Of [place] female with a past medical history of metastatic left breast cancer with metastatic pleural effusions on the right, status post PleurX catheter and discontinuation of PleurX catheter. She subsequently had another catheter placed on the left. Also has chronic renal insufficiency, arthritis, hypertension. She came into the emergency room today with increasing shortness of breath. Chest x-ray appears to show small left-sided pleural effusion as well as bilateral infiltrates. She did also support having a dry cough with no sputum. She did not complain of fever or chills or chest pain or nausea. She is having low back pain and bone pain in general. No chest pain, vomiting or diarrhea or any type of syncopal episodes. She will be admitted to the Medical Floor for further evaluation and treatment. PAST MEDICAL HISTORY: See HPI. PREVIOUS SURGICAL HISTORY: PleurX catheter placement and discontinuation on the right, PleurX catheter placement on the left, right-sided thoracentesis, gastric bypass surgery, bilateral hip arthroplasty, bilateral knee arthroplasty, appendectomy, cholecystectomy, hysterectomy and I believe cataract surgery. SOCIAL HISTORY: Very supportive daughter at the bedside. No tobacco, alcohol or illicit drugs. She is . FAMILY HISTORY: Positive for hypertension and cancer, unknown what type. ALLERGIES: Codeine. HOME MEDICATIONS: Albuterol one to two puffs four times a day, alprazolam 1 mg p.o. p.r.n,. calcium and magnesium carbonate 120 mg p.o. daily, Zyrtec 10 mg p.o. daily, chlorthalidone 12.5 mg p.o. daily, vitamin D3 2000 units p.o. daily, vitamin B12 1000 mcg daily, Veramyst nasal spray, one spray each nasal p.r.n., furosemide 40 mg p.o. daily, [place] 7.5 p.r.n., Reglan one p.o. q.6 p.r.n., mirtazapine 15 mg p.o. nightly p.r.n., Geritol one p.o. daily, potassium chloride 20 mEq daily, Phenergan 25 mg q 6 p.r.n., Ambien 10 mg p.o. nightly. REVIEW OF SYSTEMS: Fourteen-point review of systems conducted with the patient. Pertinent positives listed above in the HPI. All other systems reviewed and found to be negative. PHYSICAL EXAMINATION: VITAL SIGNS: Temp 97.6, pulse 94, respirations 24, blood pressure 179/115, oxygen saturation 96% on 2 liters nasal cannula. GENERAL: A pleasant 78-year-old female lying in the ER stretcher. Is alert and oriented x3. Answers all questions appropriately. Daughter is at bedside. Very attentive. She is in no acute distress. HEENT: Head is atraumatic, normocephalic. Pupils equal, round and reactive to light. Extraocular eye movement is intact. Sclerae are nonicteric. Conjunctiva is pale. Oral mucosa is moist. NECK: Supple. No JVD. No thyromegaly. Trachea is midline. No cervical lymphadenopathy. CARDIAC: S1, S2 appreciated. No murmurs, gallops or rubs. LUNGS: Decreased bilaterally. Crepitation is noted throughout bilateral lung baptiste. No rhonchi. No wheezes. Symmetrical rise and fall with respirations. ABDOMEN: Soft, nondistended, nontender. Bowel sounds present in all four quadrants. No pulsatile mass. No organomegaly. CHEST: Left-sided pleural catheter noted. NEUROLOGICAL: Alert and oriented x3. No focal motor deficits. Otherwise nonfocal examination. EXTREMITIES: Trace lower extremity edema, nonpitting. Two-plus pedal pulses. GENITOURINARY: No bladder distention. Patient voids. Otherwise deferred. DIAGNOSTIC DATA: Chest x-ray: Small bilateral effusions. Cardiomegaly. Increased pulmonary vascular congestion. Bilateral small intermittent opacities. LABORATORY DATA: WBC 3.32, hemoglobin 13.6, hematocrit 42.8, platelet count 312. Sodium 140, potassium 5.1, chloride 102, carbon dioxide 22, BUN 26, creatinine 1.1. Glucose 101. ASSESSMENT AND PLAN: 1. Pneumonia. Will treat this as a healthcare-acquired. Will give the patient vancomycin and Maxipime. Blood cultures are pending. Will consult Dr. Lisa Casas q.6 hours. 2. Metastatic breast cancer. Aware. Consult Dr. Gonzalez. Continue pain medications. 3. Hypertension. I believe that the patient has been taken off of her antihypertensives. Will give hydralazine as needed for systolic blood pressure greater than 160. 4. Chronic pleural effusions. Left pleural catheter is noted. Will sent pleural fluid for culture. 5. Chronic renal insufficiency. Stable, aware. 6. Arthritis. Continue home medications. Aware. Further recommendations per patient clinical course. Dictated by KANCHAN Norris for Meli Garvey MD cc: KANCHAN Norris MD Moses Awoniyi, MD Naveen T. Lobo, MD Independent exam and assessment performed by me at bedside. Plan of care above was discussed with GEOTECHNICAL ENGINEER. Scheduled nebs recommended. MTDD
[2019-05-31] MEDS ORDERED: VANCOMYCIN 1,450 MG in NS 250 ML IV ONE (06:30)
[2019-05-31] MEDS: MAXIPIME 1 GM in NS 50 ML IV SCH ×2 (06:51→15:16)
--- NOTE | 2019-05-31 07:07 | Diag Imaging Result Doc PS360 ---
EXAM: CHEST-1 VIEW 05/31/2019 HISTORY: sob TECHNIQUE: AP portable at 0158 COMMENT: There is a chest tube on the left. There is what appears to be pleural thickening or loculated effusion laterally on the left. This is actually worsened somewhat since 05/23/2019. There is also increasing parenchymal opacification in the left upper lobe and lower lobe. There is interstitial opacity in the right lower and upper lobe. There is fluid loculated in the minor fissure on the right. IMPRESSION: Bilateral loculated pleural effusions, more so on the left than the right. Atelectasis versus pneumonia on the left. Pulmonary edema. Electronically signed by Rodriguez Anton 05/31/2019 7:05 AM
[2019-05-31] MEDS ORDERED: TYLENOL PO PRN (08:49)
[2019-05-31] MEDS: DUONEB (A & A) INH SCH ×3 (09:45→21:45)
[2019-05-31] MEDS: ZYRTEC PO SCH (10:04)
[2019-05-31] MEDS: HYGROTON PO SCH (10:04)
[2019-05-31] MEDS: TUMS PO SCH (10:04)
[2019-05-31] MEDS: VITAMIN D PO SCH (10:05)
[2019-05-31] MEDS: KLOR-CON PO SCH (10:06)
[2019-05-31] MEDS: LASIX PO SCH (10:06)
[2019-05-31] MEDS: CENTRUM SILVER PO SCH (10:06)
[2019-05-31] MEDS: LOVENOX SUBQ SCH (11:23)
[2019-05-31 12:24] LABS: CK INDEX 1.8 (0.0-2.5); CK-MB 4.19 ng/mL (0.0-5.0)
[2019-05-31 16:26] LABS: URINE SOURCE CLEAN CATCH
[2019-05-31 16:28] LABS: BILIRUBIN URINE NEGATIVE (NEGATIVE); BLOOD URINE NEGATIVE (NEGATIVE); COLOR YELLOW; GLUCOSE URINE NEGATIVE (NEGATIVE); KETONE URINE NEGATIVE (NEGATIVE); LEUKOCYTES URINE TRACE (NEGATIVE); NITRITE URINE NEGATIVE (NEGATIVE); PROTEIN URINE NEGATIVE (NEGATIVE); SP GRAVITY URINE 1.017; TURBIDITY URINE CLEAR (CLEAR); UR EPITHELIAL CELLS <10 /HPF (<10); URINE BACTERIA NEGATIVE /HPF; URINE RBC <10 /HPF (<10); URINE WBC <10 /HPF (<10); UROBILINOGEN URINE NORMAL (NORMAL)
--- NOTE | 2019-05-31 16:46 | HEMO/ONC CONSULTATION ---
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 HISTORY OF PRESENT ILLNESS: This is a 78-year-old female with a past medical history of metastatic left breast cancer with metastatic pleural effusion on the right. She also has chronic renal insufficiency, arthritis, and hypertension. She came to the emergency room yesterday with increasing shortness of breath over the last several weeks. Her chest x-ray appears to show a small left-sided pleural effusion as well as bilateral infiltrates. She has a dry cough. She denies fever or chills, chest pain, or nausea. She has generalized bone pain. The patient originally had a right-sided pleural effusion. She had a PleurX catheter placed which was eventually removed when the effusion resolved. Most recently, she has had a left-sided pleural effusion and had a another PleurX catheter placed. She has been getting her PleurX catheter drained on a once a week basis. She starts to feel short of breath as the fluid reaccumulates. She states she feels better when the fluid is drained more often. We suggested to her to discuss this with her home health nurse and increase the draining time to every other day. 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 PAST SURGICAL HISTORY: PleurX catheter placement and discontinuation on the right, PleurX catheter placed on the left, right-sided thoracentesis, gastric bypass surgery, bilateral hip arthroplasty, bilaterally knee arthroplasty, appendectomy, cholecystectomy, hysterectomy, and cataract surgery. ALLERGIES: Codeine. HOME MEDICATIONS: Albuterol, alprazolam, terazosin, chlorthalidone, vitamin D3, vitamin B12, fluticasone, furosemide, [place] 10, Reglan, mirtazapine, Geritol Complete, potassium chloride, promethazine, zolpidem, and Caltrate D. SOCIAL HISTORY: She is a nonsmoker and nondrinker. FAMILY HISTORY: Noncontributory. REVIEW OF SYSTEMS: Pertinent positives in HPI which include shortness of breath, fatigue, arthritis, and weight loss. PHYSICAL EXAM: Vital Signs: Temperature 98.4 degrees, pulse rate 109, respiratory rate 18, blood pressure 154/80, O2 saturation 100% on nasal cannula at 2 L. She is in 0/10 pain. General: An elderly appearing female in no acute distress. Eyes: Anicteric. PERRLA. Ears, Nose, and Throat: Oral mucosa is normal. Cardiovascular: Normal S1, S2. No murmurs, gallops, or rubs. Respiratory: No signs of respiratory distress. Lung sounds are diminished. She has a PleurX catheter to the left chest. Gastrointestinal: Abdomen is soft, nondistended, nontender. Bowel sounds are present. Musculoskeletal: No bony abnormalities. Skin: No petechiae, ecchymosis or rashes noted. Neurological: Awake, alert, and oriented x3. No focal motor deficits. Normal gait. Lymphatic: No lymph nodes palpated. LABORATORY: WBCs are 3.32, hemoglobin 13.6, hematocrit 42.8, platelet count 312,000, ANC is 2.86. Creatinine 1.1. Chest x-ray with bilateral loculated pleural effusions, more so on the left than the right. Atelectasis versus pneumonia on the left. Pulmonary edema. ASSESSMENT: 1. Bilateral pleural effusions. 2. Metastatic triple negative left breast cancer, currently on therapy. 3. Chronic renal insufficiency. PLAN: The patient is currently on Abraxane therapy. Her last cycle was on 05/26/2019. She is also on Xgeva. She had that treatment the same day. She is also on a Procrit protocol. The patient is currently tolerating her treatment well. She will be due for her next restaging scans at the end of June. We recommend draining her PleurX catheter daily or every other day. Recommend evaluation per Dr. Gonzalez. We will continue to follow closely. Dictated by KANCHAN Andrew for Johnathan Gonzalez MD Patient seen and examined. Metastatic breast with bilateral effusions requiring pleurex catheter as described above. Over several weeks, she has complained of dyspnea. ECHO and CXR were unrevealing. She was scheduled to see Dr. Gonzalez outpatient. Consult Dr. Gonzalez in house. Johnathan Gonzalez MD. cc: Johnathan Gonzalez MD [facility]
[2019-05-31] MEDS: NORCO-10 PO PRN (17:31)
--- NOTE | 2019-05-31 20:49 | PULMONOLOGY CONSULTATION ---
DATE: 05/31/2019 REQUESTING PHYSICIAN: Dr. Paul. REASON FOR CONSULTATION: Shortness of breath and pleural effusions. HISTORY OF PRESENT ILLNESS: Miss Lama is an unfortunate, 78-year-old, black female who was diagnosed with breast cancer earlier this year. The patient had a left-sided breast mass and had a right-sided malignant pleural effusion. The patient underwent PleurX catheter with recurrent drainage until she auto-pleurodesed. She subsequently started developing fluid on the left side and she had a left-sided PleurX catheter placed. She has had increasing shortness of breath over the last several weeks. Attempts to drain the left chest have been incomplete. The patient presented to the hospital with increasing shortness of breath. PAST MEDICAL HISTORY AND PROBLEM LIST: 1. Triple negative breast cancer with metastatic disease and malignant pleural effusions as per above. 2. Chronic kidney disease. 3. Osteoarthritis. 4. Hypertension. 5. Dyslipidemia. 6. Anxiety disorder. 7. History of obesity with gastric bypass. 8. Status post appendectomy. 9. Status post cholecystectomy. 10. Status post bilateral knee replacement. 11. Status post bilateral hip arthroplasty. SOCIAL HISTORY: She is a nondrinker and nonsmoker. The patient has her master's degree in social work. 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 REVIEW OF SYSTEMS: Notable for generalized weakness, significant weight loss, decreased appetite, and chronic lower extremity edema. PHYSICAL EXAMINATION: General: Reveals a delightful black female resting comfortably and in no distress. vital signs: BP 154/80, heart rate 109, respiratory rate 18, oxygen saturation 100% on nasal cannula. HEENT: Pupils are equal and reactive. Oropharynx appears clear. Neck: Supple. Chest: Reveals shallow breath sounds bilaterally with decreased breath sounds left base. Cardiac: S1, S2. abdomen: Soft with diminished bowel sounds. Extremities: Without edema. LABORATORIES: CT scan of the thorax is reviewed. 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 The patient has pleural thickening on the left with small pockets of loculated fluid. There also is some more prominent pleural thickening medially. On the left side she has a PleurX catheter which begins in the medial chest wall and extends apically and then descends posteriorly. The pleural fluid is at the edge of the catheter. There is a large collection of pleural fluid below the catheter's reach. There is mild atelectasis in the left lung. A breast mass can be seen in the left lung measuring about 3 cm. It may be slightly smaller than on the CT scan of 01/04/2019. IMPRESSION: A 78-year-old with: 1. Hypoxemic respiratory failure. 2. Pleural effusion with incomplete drainage with current PleurX catheter. 3. Dyspnea on exertion and at rest. 4. Bilateral lower extremity edema. IMPRESSION: A 78-year-old with problems outlined above. She most likely has a component of restrictive lung physiology as well as the pleural effusion and this likely explains her shortness of breath. She has had an echocardiogram approximately 1 month ago which revealed good left ventricular function and without significant pulmonary hypertension. I think pulmonary emboli would be less likely, but not out of the realm of possibilities. RECOMMENDATIONS: 1. I will request Radiology to perform a thoracentesis on the left hemithorax to see if she gains benefit from this procedure. She may require repositioning of her PleurX catheter. 2. Check venous Dopplers of the lower extremities to rule out deep vein thrombosis given her metastatic breast cancer. 3. Consider V/Q scan after pleural effusion has been drained. 4. Additional recommendations pending hospital course. cc: Johnny Gonzalez MD
[2019-05-31] MEDS: REMERON PO SCH (21:13)
--- NOTE | 2019-05-31 21:13 | Diag Imaging Result Doc PS360 ---
CT THORAX W/O CONTRAST - 05/31/2019 INDICATION: pna COMPARISON: Chest x-ray 05/31/2019. Chest CT 01/04/2019. FINDINGS: There is a known left breast cancer. This is slightly decreased in size from prior. This now measures about 3 x 2.5 cm. There is an anterior left-sided chest tube which extends superiorly and passes over the top of the lung into the posterior upper lobe. There is some pleural fluid in the left lung base. There is trace pleural fluid on the right. There is a right chest port in good position. There is some coarse interstitial opacity in the right lung base. There are some fibrotic appearing interstitial opacity in the left upper lobe underlying the lung mass. There are a couple small nodules in the right lung measuring 5 mm or less. No significant infiltrates. Heart size is top normal. There are moderate degenerative changes of the spine. No acute or suspicious bony lesion. IMPRESSION: 1. Trace right and moderate left pleural effusions. 2. Small indeterminate right-sided pulmonary nodules. 3. Fibrotic appearing opacities in the lungs bilaterally. 4. Slight decrease in size of the known left breast cancer. This exam was performed using automated exposure control, adjustment of mA or kV according to patient size, and/or use of iterative reconstruction technique Electronically signed by Kerwin Magallon 05/31/2019 9:10 PM
[2019-05-31] MEDS: AMBIEN PO SCH (21:14)
[2019-06-01] MEDS: DUONEB (A & A) INH SCH ×4 (03:48→22:01)
[2019-06-01] MEDS: MAXIPIME 1 GM in NS 50 ML IV SCH ×2 (04:53→16:03)
[2019-06-01 06:13] LABS: BASO# 0.01 X1000 (0.0-0.2); BASO% 0.2 % (0.0-0.8); EOS# 0.03 X1000 (0.0-0.7); EOS% 0.7 % (0.0-10.0); HEMATOCRIT 34.3 % (37.0-47.0); HEMOGLOBIN 10.6 g/dL (12.0-16.0); IMM GRAN# 0.02 X1000 (0.0-0.04); IMM GRAN% 0.5 % (0.0-0.5); LYMPH# 0.27 X1000 (1.2-3.4); LYMPH% 6.6 % (20.5-51.1); MCH 29.6 PG (27-31); MCHC 30.9 g/dL (33-37); MCV 95.8 FL (81-99); MONO% 7.4 % (1.7-9.3); MPV 9.9 FL (7.4-10.4); NEUT# 3.44 X1000 (1.4-6.5); NEUT% 84.6 % (42.2-75.2); PLT 298 X1000 (130-400); RBC 3.58 XMIL (4.2-5.4); RDW 15.5 % (11.5-14.5); WBC 4.07 X1000 (4.8-10.8)
[2019-06-01 06:28] LABS: INR 1.2; PROTIME 15.4 Seconds (11.0-16.0)
[2019-06-01 06:49] LABS: CALCIUM 8.6 mg/dL (8.8-10.2); CREATININE 1.5 mg/dL (0.5-0.9); POTASSIUM 4.2 mmol/L (3.5-5.1)
[2019-06-01] MEDS: NORCO-10 PO PRN ×2 (07:55→16:34)
[2019-06-01] MEDS: LASIX PO SCH (08:01)
[2019-06-01] MEDS: TUMS PO SCH (08:01)
[2019-06-01] MEDS: VITAMIN D PO SCH (08:01)
[2019-06-01] MEDS: CENTRUM SILVER PO SCH (08:01)
[2019-06-01] MEDS: KLOR-CON PO SCH ×2 (08:02→08:15)
[2019-06-01] MEDS: ZYRTEC PO SCH (08:09)
[2019-06-01] MEDS: HYGROTON PO SCH (08:09)
--- NOTE | 2019-06-01 10:07 | Diag Imaging Result Doc PS360 ---
US THORACENTESIS W/IMAGE GUIDE - 06/01/2019 INDICATION: pleural effusion not drained by pleurx catheter TECHNIQUE: The risks and benefits of the procedure were discussed with the patient. All questions were answered. Written and verbal informed consent was obtained. Overlying skin was prepped and draped in sterile fashion. Anesthesia was achieved with injection of 10 cc of 1% lidocaine. COMPARISON: None FINDINGS: Ultrasound scanning demonstrated a moderate to large left basilar pleural effusion. This was successfully drained. 800 cc was removed. The fluid was dark red. The catheter was removed intact. The patient reported no symptoms from the procedure. IMPRESSION: Successful and uncomplicated ultrasound-guided thoracentesis of the left basilar pleural effusion. Electronically signed by Kerwin Magallon 06/01/2019 10:05 AM
--- NOTE | 2019-06-01 11:57 | HEMO/ONC CONSULTATION ---
DATE: 06/01/2019 HISTORY OF PRESENT ILLNESS/SUBJECTIVE: Ms. Lama is resting comfortably in bed with her daughter at the bedside. She states she feels better than she did yesterday. She continues to have shortness of breath with any exertion. She states she is comfortable. She had a good night's sleep and she had no significant events overnight. OBJECTIVE: VITAL SIGNS: Temperature 97.5 degrees, pulse rate 109, respiratory rate 26, blood pressure 157/85, O2 saturation 100% on nasal cannula at 3 L. An 8/10 chest pain. PHYSICAL EXAMINATION: General: Elderly appearing female in no acute distress. HEENT: Eyes, anicteric, PERRLA. Oral mucosa normal. Cardiovascular: normal S1, S2. No murmurs, gallops, or rubs. Heart rate and rhythm tachycardic. Lungs: Crackles noted in the left lung. Diminished lung sounds in bilateral bases. Gastrointestinal: Soft, nondistended, nontender. Bowel sounds present. Skin: No petechiae, ecchymoses or rashes noted. Skin intact. Neurological: Awake, alert, oriented x3. No focal motor deficits. LABORATORY DATA: WBC 4.07, hemoglobin 10.6, hematocrit 34.3, platelet count 298,000. ANC 3.44. Creatinine 1.5, calcium 8.6. PROCEDURES: Patient had an ultrasound guided thoracentesis. 800 mL of dark red fluid was successfully drained. ASSESSMENT: 1. Bilateral pleural effusions. 2. Metastatic triple negative left breast cancer, currently on chemotherapy. 3. Chronic renal insufficiency. PLAN: Therapeutic thoracentesis done. She states she is feeling better. Dictated by KANCHAN Andrew for Johnathan Gonzalez MD Patient seen and examined. s/p thoracentesis - feeling better. Asked to walk in room and see about dyspnea. Appreciate Dr. tilley's input. Johnathan Gonzalez MD cc: Johnathan Gonzalez MD [facility]
--- NOTE | 2019-06-01 12:56 | PROGRESS NOTE ---
DATE: 06/01/2019 SUBJECTIVE: Patient reports breathing much better after the thoracenteses done this morning. Denies any fever, chills, or cough. OBJECTIVE: Vital Signs: Temperature 97.5 degrees, heart rate 109, respiratory rate 20, blood pressure 157/85, O2 saturation 100% on 2 L nasal cannula. General Examination: This is a chronically ill-appearing, 78-year-old, female, lying in bed in no acute distress. Cardiovascular exam: S1, S2 heard. No murmurs, gallops, or rubs. Regular rate and rhythm. Respiratory exam: Decreased breath sounds globally. Minimal crepitations noted in both pulmonary bases. Patient is not using any accessory muscles or having work of breathing. Abdomen: Soft. Nontender to palpation. Bowel sounds present. No organomegaly. Extremities: Mild pedal edema in both lower extremities. Peripheral pulses present in both legs. Neurological exam: Patient alert oriented x3. Moves 4 extremities. LABORATORY DATA: White cell count 4.07, hemoglobin 10.6, platelets 298 with BMP remarkable for creatinine 1.5. ASSESSMENT: 1. Acute respiratory failure. Hypoxemic. Large left pleural effusion status post thoracentesis. 2. Hypertension. 3. Metastatic breast cancer. 4. Chronic renal insufficiency. PLAN: The patient was basically admitted to the hospital for acute respiratory failure. We were told the patient has pneumonia. We did not see any report of pneumonia on the CT of the chest that we have done, but there was a large left pleural effusion that was draining. Actually we had drained 800 mL of clear fluids. Since then, patient is feeling much better. The patient had a PleurX catheter that apparently needs to be repositioned. We may need to do a V/Q scan after that drainage is done. For hypertension, will continue home medications and also Oncology has been consulted. He is following this patient. Patient required PleurX catheter at some point. DISPOSITION: We will continue to monitor this patient closely. cc: Cleveland Penaloza MD
[2019-06-01] MEDS: LOVENOX SUBQ SCH (14:35)
[2019-06-01] MEDS ORDERED: VANCOMYCIN 1,300 MG in NS 250 ML IV SCH (18:00)
[2019-06-01] MEDS: REMERON PO SCH (21:21)
[2019-06-01] MEDS: AMBIEN PO SCH (21:21)
[2019-06-02] MEDS: DUONEB (A & A) INH SCH ×4 (04:02→21:40)
[2019-06-02] MEDS: MAXIPIME 1 GM in NS 50 ML IV SCH ×2 (04:41→17:12)
--- NOTE | 2019-06-02 05:07 | PULMONOLOGY PROGRESS NOTE ---
DATE: 06/01/2019 SUBJECTIVE: The patient reports she feels better following thoracentesis. She has no dyspnea at rest. OBJECTIVE: Vital Signs: Blood pressure 159/69, heart rate 102, respiratory rate 22, oxygen saturation 100% on 3 L per nasal cannula. HEENT: Pupils are equal and reactive. Oropharynx is clear. Neck: Supple. Chest: Reveals diminished breath sounds in both lung bases. Cardiac: S1, S2. Abdomen: Soft. Extremities: Without edema. LABORATORIES: Microbiology cultures are negative to date. White blood count 4.07, hemoglobin 10.6, platelet count 298,000. Sodium 136, potassium 4.2, chloride 101, bicarbonate 25, BUN 23, creatinine 1.5. IMPRESSION: A 78-year-old with 1. Pleural effusion status post thoracentesis. 2. Dyspnea. 3. Hypoxemic respiratory failure. 4. Bilateral lower extreme edema. DISCUSSION: A 78-year-old with problems outlined above. She has significantly improved following thoracentesis. If her pleural fluid and dyspnea return, she may require repositioning of her PleurX catheter. Now that the fluid has been removed, I will complete the workup with a ventilation-perfusion scan. PLAN: 1. Ventilation-perfusion scan tomorrow. 2. Await report of venous Doppler studies. 3. Chest x-ray tomorrow. cc: Johnny Gonzalez MD
--- NOTE | 2019-06-02 07:45 | Diag Imaging Result Doc PS360 ---
EXAM: CHEST-2 VIEWS INDICATION: abnormal exam TECHNIQUE: 2 views COMPARISON: 05/31/2019 FINDINGS: The right chest port is stable. The left chest tube is in stable position. The loculated pleural effusion on the left has decreased substantially in size during the interval. There is only a small amount of layering pleural fluid at the left lung base on the current study. However, there is now a pneumothorax on the left that occupies a slightly lower volume as compared to the pleural fluid collection seen on the previous study. This probably represents an ex vacuo pneumothorax given that the prior fusion was loculated. There is actually better aeration of the left lower lung zone as compared to the previous study. Fissural fluid on the right is stable. Mild opacity at the right lung base that probably represents atelectasis is stable to marginally worse. IMPRESSION: Interval significant decrease in size of the loculated pleural fluid collection on the left but with interval development of a left pneumothorax. Please see above discussion. Electronically signed by Antoni Morrow 06/02/2019 7:43 AM
[2019-06-02] MEDS: CENTRUM SILVER PO SCH (08:51)
[2019-06-02] MEDS: ZYRTEC PO SCH (08:51)
[2019-06-02] MEDS: VITAMIN D PO SCH (08:52)
[2019-06-02] MEDS: KLOR-CON PO SCH (08:53)
[2019-06-02] MEDS: HYGROTON PO SCH (08:54)
[2019-06-02] MEDS: LASIX PO SCH (08:54)
[2019-06-02] MEDS: LOVENOX SUBQ SCH (08:55)
[2019-06-02] MEDS: TUMS PO SCH (08:55)
[2019-06-02 10:34] LABS: BASO# 0.02 X1000 (0.0-0.2); BASO% 0.4 % (0.0-0.8); EOS# 0.04 X1000 (0.0-0.7); EOS% 0.9 % (0.0-10.0); HEMATOCRIT 32.3 % (37.0-47.0); IMM GRAN# 0.05 X1000 (0.0-0.04); IMM GRAN% 1.1 % (0.0-0.5); LYMPH# 0.51 X1000 (1.2-3.4); LYMPH% 11.3 % (20.5-51.1); MCH 29.8 PG (27-31); MCV 96.1 FL (81-99); MONO# 0.34 X1000 (0.11-0.59); MONO% 7.6 % (1.7-9.3); MPV 10.1 FL (7.4-10.4); NEUT# 3.54 X1000 (1.4-6.5); NEUT% 78.7 % (42.2-75.2); PLT 293 X1000 (130-400); RBC 3.36 XMIL (4.2-5.4); RDW 15.6 % (11.5-14.5)
[2019-06-02 12:00] LABS: CALCIUM 8.6 mg/dL (8.8-10.2); CREATININE 1.4 mg/dL (0.5-0.9); POTASSIUM 4.2 mmol/L (3.5-5.1)
--- NOTE | 2019-06-02 12:29 | HEMO/ONC PROGRESS NOTE ---
DATE: 06/02/2019 SUBJECTIVE: Ms. Lama is resting comfortably in bed this morning. Her daughter is at bedside. Ms. Lama states that she does feel better than she did yesterday. She continues to feel stronger. She has no dyspnea while lying down. She can tell the fluid was removed from her lungs yesterday per the thoracentesis. She has no other complaints. She states that she had a good night's sleep. There were no significant events overnight. OBJECTIVE: VITAL SIGNS: Temperature 98.6 degrees, pulse rate 98, respiratory rate 24, blood pressure 166/84, O2 saturation 100% on nasal cannula at 2 L. Is in 0/10 pain. PHYSICAL EXAMINATION: General: This is an elderly female, in no acute distress. HEENT: Anicteric. PERRLA. Oral mucosa pink and moist. Cardiovascular: Normal S1, S2. Heart rate and rhythm is regular. Respiratory: Crackles are noted in the left lung. Bilateral breath sounds heard in both bases. Gastrointestinal: Soft, nondistended, nontender. Bowel sounds are present. Skin: No petechiae, ecchymosis, or rashes noted. Skin intact. Neurological: Awake, alert, oriented x3. No focal motor deficits. LABORATORY DATA: WBC 4.50, hemoglobin 10, hematocrit 32.3, platelet count 293,000. ANC 3.54. RADIOLOGY: Chest x-ray shows interval significant decrease in the size of the loculated pleural fluid collection on the left with an interval development of a left hemothorax. ASSESSMENT: 1. Bilateral pleural effusions, status post thoracentesis. 2. Metastatic triple-negative left breast cancer, currently on chemotherapy. 3. Chronic renal insufficiency. PLAN: Continue to support the patient medically. She is beginning to feel better. She should continue to improve. Continue to monitor her PleurX catheter. We will continue to monitor closely. Dictated by KANCHAN Andrew for Johnathan Kemp MD As above. Discussed with Dr. Stephenson regarding repositioning pleurex. Johnathan kemp MD cc: Johnathan Kemp MD [facility]
--- NOTE | 2019-06-02 12:50 | Diag Imaging Result Doc PS360 ---
EXAM: LUNG SCAN / VQ INDICATION: dyspnea, breast cancer TECHNIQUE: 41.3 mCi of aerosolized technetium 99 DTPA was administered for the ventilation portion of the scan. 5.7 mCi of IV technetium 99 MAA was administered for the perfusion portion of the scan. COMPARISON: Chest radiograph dated 06/02/2019. No prior V/Q scan is available for comparison. FINDINGS: There is a small matched defect seen in the mid right lung zone that corresponds to loculated pleural fluid that can be seen on the prior chest CT. No unmatched perfusion defects are appreciated. On the ventilation portion of the scan, a majority of the radiotracer is in the left lung. However, there is some radiotracer that does fill the right lung. IMPRESSION: 1.Low probability of pulmonary embolism. 2.Asymmetry of the amount of radiotracer between the two lungs with a decreased amount filling the right lung globally as compared to the left. Electronically signed by Antoni Morrow 06/02/2019 12:48 PM
[2019-06-02] MEDS: NORCO-10 PO PRN ×2 (13:15→20:29)
--- NOTE | 2019-06-02 13:44 | PROGRESS NOTE ---
DATE: 06/02/2019 SUBJECTIVE: Patient reports continued to be breathing better. Denies any fever or chills. OBJECTIVE: Vital Signs: Temperature 98.6 degrees, heart rate 98, respiratory 24, blood pressure 166/84, O2 saturation 100% 2 L nasal cannula. General: This is a chronically ill-appearing 78- year-old female lying in bed, in no acute distress. Cardiovascular: S1, S2 heard. No murmurs, gallops, or rubs. Regular rate and rhythm. Respiratory: Decreased breath sounds globally with mild crepitations noted in both pulmonary bases. Patient not using any accessory muscles or having work of breathing. Abdomen: Soft, nontender to palpation. Bowel sounds present. No organomegaly. Extremities: Mild pedal edema in both lower extremities. Peripheral pulses present in both legs. Neurological: Patient alert and oriented x3. Moves 4 extremities. LABORATORY DATA: Reviewed. ASSESSMENT AND PLAN: 1. Acute hypoxemic respiratory failure secondary to large pleural effusion status post thoracentesis. 2. Hypertension. 3. Metastatic breast cancer. 4. Chronic kidney insufficiency. 5. Possible pulmonary embolism. 6. At this point, the patient is feeling much better. We have performed a thoracentesis yesterday. We have drained 800 mL of clear fluid. At this point, we are going to order a V/Q scan to rule out any pulmonary embolism. On the x-ray there is left pneumothorax so we are going to repeat the x-ray tomorrow, PA and lateral, and we will go from there. We are still waiting for results of the ultrasound of both lower extremities. They are still pending. At this point, I think we will continue to monitor this patient closely. If V/Q scan is negative, pneumothorax is better. I think she can be discharged tomorrow. cc: Cleveland Penaloza MD [facility]
[2019-06-02] MEDS: REMERON PO SCH (20:29)
[2019-06-02] MEDS: AMBIEN PO SCH (20:29)
--- NOTE | 2019-06-02 21:40 | GENERAL SURGERY CONSULTATION ---
DATE: 06/02/2019 REQUESTING PHYSICIAN: Dr. Gonzalez. REASON FOR CONSULTATION: Recurrent left pleural effusion. HISTORY OF PRESENT ILLNESS: A 78-year-old female, well known to me who has metastatic breast cancer. We had previously placed a PleurX catheter in her left chest for recurrent malignant pleural effusions. It had drained successfully for a while, but now has become somewhat difficult to drain. She did have a thoracentesis, because the PleurX catheter is sitting too anterior for the fluid collection which is developing posterior. She was short of breath and became less short of breath as she had a thoracentesis. Given this, it was felt that she would benefit from repositioning of the tube given the fact that it is a PleurX catheter and likely the best way to do this would be a video-assisted thorascopic surgery. Discussed this with the patient. She wants to proceed. PAST MEDICAL HISTORY: 1. Triple negative breast cancer. 2. Chronic kidney disease. 3. Osteoarthritis. 4. Hypertension. 5. Dyslipidemia. 6. Anxiety disorder. 7. Previous pleural effusions. PAST SURGICAL HISTORY: 1. Includes history of gastric bypass. 2. History of appendectomy. 3. History of cholecystectomy. 4. History of bilateral knee replacements. 5. History of bilateral hip arthroplasties. 6. History of PleurX catheters bilaterally. SOCIAL HISTORY: Nondrinker, nonsmoker. FAMILY HISTORY: Reviewed with patient, noncontributory. ALLERGIES: Codeine. HOME MEDICATIONS: Reviewed. REVIEW OF SYSTEMS: A full 14 systems reviewed and are negative except as specified in HPI. PHYSICAL EXAMINATION: Vital Signs: Patient is currently afebrile. Her vital signs are stable. General: No acute distress. Resting comfortably. female looks stated age. HEENT: Normocephalic, atraumatic. Pupils equal, round, and reactive to light. Mucous membranes moist. Oropharynx benign. Neck: Supple. Trachea midline. Cardiovascular: Regular rate and rhythm. Lungs: Grossly clear. No increased labored breathing at this time. Abdomen: Soft, nontender, nondistended. Extremities: Moves all extremities. Neurologic: Grossly intact. Skin: No signs of jaundice. Vascular: All extremities perfused. LABORATORY: Reviewed. White blood cell count 4, hematocrit 32, platelet count 293,000. Remainder of labs reviewed. Imaging reviewed and noted above. ASSESSMENT AND PLAN: A 78-year-old female with malpositioned PleurX catheter. Malpositioned PleurX catheter. At this time, we will plan on repositioning it via video-assisted thorascopic surgery tomorrow. We will make her n.p.o. after midnight. Discussed with her and her family member the risks, benefits, and alternatives of procedure. Risks including, but not limited to, risk of anesthesia, risk of bleeding risk of infection, risk of injuring the lung and surrounding tissue discussed. She voiced understanding and wished to proceed with the procedure. We will again plan on doing this tomorrow. cc: Akira Stephenson MD
[2019-06-03] MEDS: DUONEB (A & A) INH SCH ×4 (03:43→23:12)
[2019-06-03] MEDS: MAXIPIME 1 GM in NS 50 ML IV SCH ×2 (03:45→15:35)
[2019-06-03 06:55] LABS: BASO# 0.03 X1000 (0.0-0.2); BASO% 0.7 % (0.0-0.8); EOS# 0.08 X1000 (0.0-0.7); HEMATOCRIT 31.4 % (37.0-47.0); HEMOGLOBIN 9.5 g/dL (12.0-16.0); IMM GRAN# 0.05 X1000 (0.0-0.04); IMM GRAN% 1.2 % (0.0-0.5); LYMPH% 9.8 % (20.5-51.1); MCH 29.2 PG (27-31); MCHC 30.3 g/dL (33-37); MCV 96.6 FL (81-99); MONO# 0.49 X1000 (0.11-0.59); MPV 10.1 FL (7.4-10.4); NEUT# 3.02 X1000 (1.4-6.5); NEUT% 74.3 % (42.2-75.2); PLT 310 X1000 (130-400); RBC 3.25 XMIL (4.2-5.4); RDW 15.7 % (11.5-14.5); WBC 4.07 X1000 (4.8-10.8)
[2019-06-03 07:21] LABS: CALCIUM 8.5 mg/dL (8.8-10.2); CREATININE 1.6 mg/dL (0.5-0.9); POTASSIUM 4.4 mmol/L (3.5-5.1)
--- NOTE | 2019-06-03 08:33 | Diag Imaging Result Doc PS360 ---
EXAM: CHEST-2 VIEWS INDICATION: pneumothorax TECHNIQUE: 2 views COMPARISON: 06/02/2019 FINDINGS: The right chest port and left chest tube are in stable positions. The loculated hydropneumothorax on the left is unchanged except for perhaps slightly more pleural fluid as compared to yesterday's study. Pleural fluid on the right including loculated fissural fluid is stable. Bibasilar opacities indicating atelectasis and/or infiltrate are unchanged. IMPRESSION: Likely slight increase in pleural fluid on the left. However, the pneumothorax is approximately stable. Electronically signed by Antoni Morrow 06/03/2019 8:31 AM
--- NOTE | 2019-06-03 08:37 | PULMONOLOGY PROGRESS NOTE ---
DATE: 06/02/2019 SUBJECTIVE: The patient is awake and alert. She reports her breathing is better than yesterday. OBJECTIVE: Vital Signs: The patient has been afebrile for the last 24 hours. Blood pressure 146/60, heart rate 104, respiratory rate 22, and oxygen saturation 95% on nasal cannula. HEENT: Pupils are equal and reactive. Oropharynx appears clear. Neck: Supple. Lungs: Chest reveals diminished breath sounds left base. Cardiac: S1-S2. Abdomen: Soft and without hepatosplenomegaly. Extremities: Without edema. LABORATORY: Chest x-ray reveals left basilar pneumothorax. V/Q scan reveals good perfusion without unmatched defects. Interestingly, patient has decreased ventilation in the right lung despite this being more radiographically normal on chest x-ray. IMPRESSION: A 78-year-old with: 1. Small pneumothorax. 2. Pleural effusion which failed to drain with PleurX catheter likely due to placement. 3. Asymmetric ventilation noted on ventilation-perfusion scan. This most likely is related to pleural thickening/rind formation on the right lung thereby inhibiting ventilation. This also is contributing to her dyspnea. 4. Mild bilateral lower extremity edema. PLAN: 1. Anticipate review of the case by Dr. Akira Stephenson to consider repositioning of PleurX catheter. 2. Followup chest x-ray tomorrow. cc: Johnny Gonzalez MD
[2019-06-03] MEDS: LOVENOX SUBQ SCH (12:32)
[2019-06-03] MEDS: TUMS PO SCH (12:33)
[2019-06-03] MEDS: ZYRTEC PO SCH (12:33)
[2019-06-03] MEDS: CENTRUM SILVER PO SCH (12:33)
[2019-06-03] MEDS: HYGROTON PO SCH (12:33)
[2019-06-03] MEDS: KLOR-CON PO SCH (12:33)
[2019-06-03] MEDS: LASIX PO SCH (12:33)
[2019-06-03] MEDS: VITAMIN D PO SCH (12:33)
--- NOTE | 2019-06-03 12:38 | HEMO/ONC PROGRESS NOTE ---
DATE: 06/03/2019 SUBJECTIVE: Ms. Lama is resting comfortably in bed this morning. Her daughter remains with her at bedside. She states that she feels good this morning. She is ready to have surgery today. She understands the procedure that is occurring today. She states she had a good night's sleep and no significant events overnight. OBJECTIVE: Vital Signs: Temperature 98.7 degrees, pulse rate 107, respiratory rate 18, blood pressure 140/59, O2 saturation 100% on room air. She is in 0/10 pain. General: This is an elderly-appearing female in no acute distress. HEENT: Anicteric. PERRLA. Oral mucosa pink and moist. Cardiovascular: Normal S1, S2. Heart rate and rhythm is regular. Respiratory: Crackles were noted in the left lung base. Breath sounds appear diminished in the right lung. Gastrointestinal: Soft, nondistended, nontender. Bowel sounds are present. Skin: No petechiae, ecchymosis, or rashes noted. Skin intact. Neurological: Awake, alert, oriented x3. No focal motor deficits. LABORATORY: WBCs 4.07, hemoglobin 9.5, hematocrit 31.4, platelet count 310,000. ANC 3.02, creatinine 1.6. X-RAYS: Chest x-ray shows slight increase in pleural fluid on the left. Pneumothorax is approximately stable. ASSESSMENT: 1. Bilateral pleural effusions, status post thoracentesis. 2. Metastatic triple negative left breast cancer, currently on chemotherapy. 3. Chronic renal insufficiency. PLAN: Dr. Stephenson plans to take the patient to surgery today for video-assisted thorascopic repositioning of the PleurX catheter. This should help the lung drain better. The patient is continuing to feel better since the thoracentesis, and this will continue her progress. We will continue to monitor over the weekend. Please call us if needed. Dictated by KANCHAN Andrew for Johnathan Gonzalez MD cc: Johnathan Gonzalez MD [facility] CENTERKasey
--- NOTE | 2019-06-03 13:29 | GENERAL SURGERY PROGRESS NOTE ---
DATE: 06/02/2019 SUBJECTIVE: Patient seems to be doing okay. OBJECTIVE: Vital Signs: Patient is currently afebrile. Her vital signs stable. General: No acute distress. HEENT: Normocephalic, atraumatic. Pupils equal, round, reactive to light. Mucous membranes moist, oropharynx benign. Neck: Supple. Trachea midline. Cardiovascular: Regular rate and rhythm. Lungs: Grossly clear. Abdomen: Soft, nontender, nondistended. Extremities: Moves all extremities. Neurologic: Grossly intact. Skin: No signs of jaundice. Vascular: All extremities perfused. LABORATORY: Reviewed from yesterday, none currently this morning. ASSESSMENT AND PLAN: A 78-year-old female with metastatic breast cancer with recurrent pleural effusion with malposition, PleurX catheter: 1. Malposition PleurX catheter. At this time we will plan on reposition in the operating room via a video-assisted thorascopic surgery. 2. Discussed with her yesterday the risks, benefits, and alternatives. She is aware and we will proceed. cc: Akira Stephenson MD
[2019-06-03] MEDS ORDERED: DIPRIVAN 1% ONE (13:58)
[2019-06-03] MEDS ORDERED: FENTANYL ONE (13:58)
[2019-06-03] MEDS ORDERED: SODIUM CHLORIDE 0.9% 10 ML ONE (14:01)
[2019-06-03] MEDS ORDERED: XYLOCAINE-MPF 2% ONE (14:01)
[2019-06-03] MEDS ORDERED: NORCURON ONE (14:01)
[2019-06-03] MEDS ORDERED: QUELICIN (DOSE) ONE (14:01)
[2019-06-03] MEDS ORDERED: SENSORCAINE 0.25%/EPI 1:200,000 ONE (14:05)
--- NOTE | 2019-06-03 15:17 | Extremity Venous Study ---
PROCEDURE NAME: Venous U/S Bilateral Legs - 06/01/2019 ROOFER APPLICATOR: Evert. REQUESTING PHYSICIAN: Dr. Gonzalez. INDICATION: Pain, swelling, shortness of breath. FINDINGS: The bilateral lower extremities veins were visualized and imaged along their course with the exception of the left peroneal vein which was somewhat limited in visibility. The remaining vessels were compressible with forward flow and no evidence intraluminal thrombus. SUMMARY: No deep or superficial venous thrombosis noted in bilateral lower extremities. cc: MD Johnny Duque MD
[2019-06-03] MEDS ORDERED: NEO-SYNEPHRINE ONE (15:20)
[2019-06-03] MEDS ORDERED: DECADRON ONE (15:21)
[2019-06-03] MEDS ORDERED: ZOFRAN ONE (15:21)
--- NOTE | 2019-06-03 15:38 | PROGRESS NOTE ---
DATE: 06/03/2019 SUBJECTIVE: Patient reports breathing fine, denies any fever or chills. VITALS: Temperature 98.1 degrees, heart rate 110, respiratory rate 20, blood pressure 153/65, O2 saturation 100% 2 L nasal cannula. PHYSICAL EXAMINATION: This is a chronically ill-appearing, 78-year-old female lying in bed, in no acute distress. Cardiovascular Exam: S1, S2 heard. No murmurs, gallops, or rubs. Regular rate and rhythm. Respiratory Exam: Decreased breath sounds globally with murmur. Crepitations noted in both pulmonary bases. Patient not using any accessory muscles or having work of breathing. Abdomen: Soft, nontender to palpation. Bowel sounds present. No organomegaly. Extremities: Mild pitting edema in both lower extremities. Peripheral pulses present in both legs. Neurological: The patient alert oriented x3. Moves 4 extremities. LABORATORY DATA: Reviewed. ASSESSMENT AND PLAN: 1. Acute hypoxemic respiratory failure secondary to large pleural effusion status post thoracentesis. 2. Hypertension. 3. Metastatic breast cancer. 4. Chronic kidney disease. 5. Possible pulmonary embolism. 6. Malfunction PleurX catheter. 7. At this point, patient is much better. At admission, she was found to have a large left pleural effusion that was drained. 800 mL of pleural fluid was drained. Also, because of the possibility of pulmonary embolism, we have done a V/Q scan, which returned negative. Regarding this worsening left pleural effusion found at admission, we have consulted Dr. Stephenson from general surgery who is planning to reposition the Pleurx catheter today. I think that we will be keeping this patient overnight. If the patient is cleared by General Surgery tomorrow, I think she should be discharged. cc: Cleveland Penaloza MD
[2019-06-03] MEDS ORDERED: ROBINUL ONE (15:50)
[2019-06-03] MEDS ORDERED: NEOSTIGMINE ONE (15:51)
[2019-06-03] MEDS ORDERED: BREVIBLOC ONE (15:51)
--- NOTE | 2019-06-03 16:44 | Diag Imaging Result Doc PS360 ---
CHEST-PORTABLE - 06/03/2019 INDICATION: post op pleural catheter COMPARISON: 8:19 AM FINDINGS: There has been increase in size of the left-sided pneumothorax in spite of a left basilar chest tube in good position. The fusion is no longer present. Lung volumes are much lower. There is increasing interstitial infiltrate throughout both lungs compatible with pulmonary edema. There is cardiomegaly. Stable right chest port. IMPRESSION: Worsening from prior. Larger left pneumothorax. Worsening interstitial pulmonary edema. Electronically signed by Kerwin Magallon 06/03/2019 4:42 PM
[2019-06-03] MEDS: LABETALOL IV ONE ×2 (16:56→18:01)
[2019-06-03] MEDS ORDERED: PRECEDEX ONE (17:05)
[2019-06-03 17:07] LABS: ALLEN TEST YES; BE -3.7 mmoll (-3.0-3.0); BLOOD TYPE ARTERIAL; O2(CT) 14.5 mL/dL (15.0-23.0); O2HB 96.7 % (95.0-99.0); PO2(98.6) 166 mmHg (60-100); SAMPLE BLOOD; SAO2 98.3 % (95.0-100.0); THB 10.4 g/dL (11.5-17.4); pH(98.6) 7.27 (7.35-7.45)
[2019-06-03 17:11] LABS: MODALITY CANNULA; PCO2(98.6) 51 mmHg (35-45)
[2019-06-03] MEDS ORDERED: ULTRAM PO PRN (17:25)
--- NOTE | 2019-06-03 18:53 | Diag Imaging Result Doc PS360 ---
CHEST-PORTABLE - 06/03/2019 5:56 PM INDICATION: post op pleural cath COMPARISON: 4:25 PM FINDINGS: There is a stable left basilar chest tube. The left lung is now essentially completely reinflated with resolution of the pneumothorax. There is some stable soft tissue gas at the lateral chest wall on the left. The pulmonary edema has decreased. IMPRESSION: Resolution of the pneumothorax. Decrease of the interstitial pulmonary edema. Electronically signed by Kerwin Magallon 06/03/2019 6:50 PM
[2019-06-03] MEDS: NORCO-10 PO PRN (20:29)
[2019-06-03] MEDS: REMERON PO SCH (20:29)
--- NOTE | 2019-06-03 22:30 | OPERATIVE NOTE ---
PROCEDURE DATE: 06/03/2019 PREOPERATIVE DIAGNOSIS: 1. Metastatic breast cancer. 2. Recurrent left pleural effusion. 3. Malfunctioning left chest PleurX catheter. POSTOP DIAGNOSIS: 1. Metastatic breast cancer. 2. Recurrent left pleural effusion. 3. Malfunctioning left chest PleurX catheter. PROCEDURE: 1. Left video-assisted thorascopic surgery. 2. Removal of left PleurX catheter. 3. Placement of left PleurX catheter through different incision. SURGEON: Akira Stephenson MD. GEAR MACHINE OPERATOR: None. ANESTHESIA: General endotracheal. INTRAOPERATIVE FINDINGS: Fluid noted posteriorly and inferiorly. COMPLICATIONS: None at time this dictation. ESTIMATED BLOOD LOSS: 5 mL. SPECIMENS REMOVED: Fluid from the chest. BRIEF HISTORY: A 78-year-old female who I had previously seen for metastatic breast cancer, placed a PleurX catheter on left side. It was in the chest and functioning fine but she started developing loculated fluid inferiorly and posteriorly which just was not able to get, felt she would benefit from a new PleurX catheter repositioning. The risks, benefits, alternatives were discussed. All questions answered. DESCRIPTION OF PROCEDURE: After informed consent was obtained patient brought to the operative theatre, transferred to the operating table, placed supine position. General endotracheal anesthesia was then performed without complication. A formal time-out was then performed confirming patient, date, procedure, all in agreement. At that time attention was given to the left chest. She was positioned in the left chest was up. We prepped and draped in a sterile fashion. After this we turned our attention to the left chest in the 5th intercostal space in the posterior axillary line, made an incision through which I was able to get a 5 mm trocar into the chest. We viewed she had some loculated fluid. I viewed that the catheter itself that was previously placed would not be able to be repositioned to be advantageous to its current fluid location. We placed another 5 mm trocar inferior to our first trocar, confirmed this, irrigated out the chest until the suction fluid was relatively clear. We then decided to remove the old PleurX catheter. I bluntly dissected the cuff out from the other catheter, removed it intact, closed the incision with stitches with 3-0 chromic. We then elected to use our 2nd trocar site for placement of a PleurX catheter. We made another incisions where the cuff would come out the skin more anteriorly, tunneled the catheter through the skin, placed it through the trocar site to go inferiorly and posteriorly to where the fluid was located, placed it, secured it in place, removed the other trocar, sewed these skin incisions closed with chromic, secured the PleurX catheter with chromic and then connected to the suction which drained additional fluid. We placed a sterile dressing. The patient tolerated the procedure well. She was transferred recovery room. cc: Akira Stephenson MD
--- NOTE | 2019-06-03 22:40 | PULMONOLOGY PROGRESS NOTE ---
DATE: 06/03/2019 SUBJECTIVE: The patient is awake and alert. She reports she had a good evening. She is without specific complaints. OBJECTIVE: Vital Signs: The patient has been afebrile for the last 24 hours. Blood pressure 153/65, heart rate 110, respiratory rate 20, O2 saturation 100% on 3 L per nasal cannula. HEENT: Pupils are equal and reactive. Oropharynx is clear. Neck: Supple. Chest: Reveals crackles in both lung bases. Cardiac: S1, S2. Abdomen: Soft. Extremities: Without edema. IMPRESSION: A 78-year-old with 1. Stage IV breast cancer with metastatic disease to the pleural surface. 2. Pleural effusion with failure to drain with current PleurX catheter. 3. Small pneumothorax following thoracentesis. PLAN: 1. Anticipate thoracoscopy today for repositioning of her PleurX catheter. 2. Additional recommendations pending hospital course. cc: Johnny Gonzalez MD
[2019-06-03] MEDS: AMBIEN PO SCH (22:42)
[2019-06-04] MEDS: APRESOLINE IV PRN (01:51)
[2019-06-04] MEDS ORDERED: XANAX PO ONE ×2 (02:26→17:40)
[2019-06-04] MEDS: DUONEB (A & A) INH SCH ×3 (04:42→22:15)
[2019-06-04] MEDS: MAXIPIME 1 GM in NS 50 ML IV SCH ×2 (05:05→15:36)
[2019-06-04 06:36] LABS: BASO# 0.01 X1000 (0.0-0.2); BASO% 0.1 % (0.0-0.8); HEMATOCRIT 37.6 % (37.0-47.0); HEMOGLOBIN 11.4 g/dL (12.0-16.0); IMM GRAN# 0.06 X1000 (0.0-0.04); IMM GRAN% 0.8 % (0.0-0.5); LYMPH# 0.41 X1000 (1.2-3.4); LYMPH% 5.4 % (20.5-51.1); MCH 29.5 PG (27-31); MCHC 30.3 g/dL (33-37); MCV 97.4 FL (81-99); MONO# 0.63 X1000 (0.11-0.59); MONO% 8.3 % (1.7-9.3); MPV 9.9 FL (7.4-10.4); NEUT# 6.51 X1000 (1.4-6.5); NEUT% 85.4 % (42.2-75.2); PLT 344 X1000 (130-400); RBC 3.86 XMIL (4.2-5.4); RDW 15.6 % (11.5-14.5); WBC 7.62 X1000 (4.8-10.8)
[2019-06-04 07:26] LABS: CALCIUM 8.5 mg/dL (8.8-10.2); CREATININE 1.3 mg/dL (0.5-0.9)
[2019-06-04 07:27] LABS: POTASSIUM 5.6 mmol/L (3.5-5.1)
--- NOTE | 2019-06-04 07:35 | Diag Imaging Result Doc PS360 ---
CHEST-1 VIEW - 06/04/2019 INDICATION: ct in place COMPARISON: 06/03/2019 FINDINGS: Stable left basilar chest tube. No pneumothorax. There is continued decrease in the interstitial infiltrates bilaterally compatible with pulmonary edema. No new infiltrates. Stable cardiac megaly. Stable right chest port. IMPRESSION: Continued improvement in the pulmonary edema. Electronically signed by Kerwin Magallon 06/04/2019 7:33 AM
[2019-06-04] MEDS: LOVENOX SUBQ SCH (08:22)
[2019-06-04] MEDS: TUMS PO SCH (08:23)
[2019-06-04] MEDS: CENTRUM SILVER PO SCH (08:23)
[2019-06-04] MEDS: NORCO-10 PO PRN ×2 (08:23→20:43)
[2019-06-04] MEDS: LASIX PO SCH (08:24)
[2019-06-04] MEDS: ZYRTEC PO SCH (08:24)
[2019-06-04] MEDS: VITAMIN D PO SCH (08:24)
[2019-06-04] MEDS: KLOR-CON PO SCH (08:26)
[2019-06-04 08:46] LABS: ALLEN TEST YES; BLOOD TYPE ARTERIAL; HCO3-(ACT) 22.6 mmoll (20.0-26.0); METHB 0.9 % (0.0-1.5); O2(CT) 16.1 mL/dL (15.0-23.0); O2HB 96.9 % (95.0-99.0); PCO2(98.6) 42 mmHg (35-45); PO2(98.6) 147 mmHg (60-100); SAMPLE BLOOD; THB 11.6 g/dL (11.5-17.4); pH(98.6) 7.34 (7.35-7.45)
[2019-06-04 08:47] LABS: MODALITY CANNULA
[2019-06-04] MEDS: HYGROTON PO SCH (09:37)
[2019-06-04] MEDS ORDERED: ATIVAN IV PRN (10:00)
--- NOTE | 2019-06-04 12:31 | PROGRESS NOTE ---
DATE: 06/04/2019 INTERVAL HISTORY: Ms. Lama underwent video-assisted thoracoscopic procedure yesterday and placement of a new left-sided PleurX catheter, which she tolerated well. She has not had any urine output after the procedure and I have requested a bladder scan to be performed. Overnight, no other acute events. She has been tachycardic. She received a dose of antianxiety medications. SUBJECTIVE: She denies any chest pain. She is feeling short of breath, but she states it is not as bad as it was before. She appears drowsy and in mild distress. She is not coughing. VITAL SIGNS: Temperature of 97 degrees, pulse of 109, respiratory rate 27, blood pressure 140/67. She is saturating 100% on 3 L nasal cannula. PHYSICAL EXAMINATION: General: Appears tachypneic. General: Oral cavity is moist. Respiratory: Decreased air entry with inspiratory crackles bilateral infrascapular region. No wheeze or rhonchi. Cardiovascular: S1, S2 normal. Tachycardic. Prominent diastolic murmur affecting left 2nd intercostal space close to sternal border. No rub or gallop. Abdomen: Soft, nontender, bilateral. Extremity: Bilateral lower extremities. Neurological: She is alert and oriented x3. She is able to raise both upper and lower extremity above ground level on verbal commands. No obvious facial droop. LABORATORY DATA: Suggestive of normal hemoglobin, normal platelet count. There is no BMP as of today. MICROBIOLOGY: No positive data. IMAGING: Chest x-ray appears to be stable. I could see interstitial opacities bilateral infrascapular region Right-sided chest port and left-sided PleurX catheter. ASSESSMENT AND PLAN: 1. Acute hypoxic respiratory failure due to mainly left-sided pleural effusion, malignant, status post thoracenteses, pneumothorax, removal of left-sided old PleurX catheter and placement of new left-sided PleurX catheter under video-assisted thoracoscopy on June 04. Continue PleurX catheter management as per Surgery Team, albuterol ipratropium nebulization, gentle diuretics. My plan is to stop antibiotics after a short course. I will also continue home fluticasone nasal spray. 2. Essential hypertension. Currently within acceptable range. Continue chlorthalidone and I will add other antihypertensive medication as needed. 3. Metastatic left breast cancer diagnosed in December 2018 with bilateral malignant pleural effusions, currently on Abraxane and Xgeva. Last therapy was in 05/25/2019. Oncology on board 4. Chronic. Kidney disease stage 3 is stable; pulmonary embolism was low in likelihood as per the V/Q scan and ultrasound of the lower extremities was negative for DVT. 5. Disposition. Considering the patient's tachypnea. I will get an ABG. I will also follow up bladder scan report. I will continue to monitor patient in ICU. TIME SPENT: More than 30 minutes of critical care time was spent taking care this patient. Plan of care discussed with the patient and the patient's nursing team. cc: López Mcnair MD
[2019-06-04] MEDS: ATIVAN IV PRN (13:46)
--- NOTE | 2019-06-04 14:47 | PROGRESS NOTE ---
DATE: 06/04/2019 Ms. Sheri Lama is a patient Dr. Stephenson, who has metastatic breast cancer and problems with the left-sided pleural effusion. She has a PleurX catheter in place. This was readjusted yesterday using thoracoscopy by Dr. Stephenson. She had a pneumothorax postop, and her PleurX catheter had to be hooked to a [*Thoraklex] Her chest x-ray this morning documents no pneumothorax, and her pleural effusion is being drained nicely by the PleurX catheter. We need to look to change this catheter from the Thoraklex[ to the bulb where she can be discharged home with this PleurX catheter. She remains in our ICU. She appears to be comfortable. She is on oxygen. We may need to consider home oxygen for her. Her heart rate is still elevated at 104, blood pressure 140/75, O2 saturation is 100% on 3 L nasal cannula O2. She had a low-grade temperature 99.9 degrees. Her white blood cell count is normal. Hematocrit is 37%. Electrolytes are within normal limits. BUN is 26, creatinine is 1.3. cc: Kaylyn Chou MD [facility]
[2019-06-04] MEDS: AMBIEN PO SCH (20:42)
[2019-06-04] MEDS: REMERON PO SCH (20:43)
--- NOTE | 2019-06-04 21:02 | PULMONOLOGY PROGRESS NOTE ---
DATE: 06/04/2019 SUBJECTIVE: The patient is awake and alert. She reports she is fatigued. She has no dyspnea at rest. OBJECTIVE: Maximum temperature in the last 24 hours 99.9 degrees. Current temperature 98.7, blood pressure 130/64, heart rate 107, respiratory rate 32, oxygen saturation 100% on 3 L per nasal cannula.HEENT: Pupils are equal and reactive. Oropharynx appears clear. Neck: Supple. Chest: Shallow breath sounds bilaterally. Cardiac: S1, S2. Increased rate. abdomen: Soft. Extremities: Without edema. LABORATORY AND DIAGNOSTIC DATA: Arterial blood gas reveals a pH of 7.34, pCO2 of 42, pO2 of 147. Chest x-ray this morning reveals repositioning of the PleurX catheter. Mild edema. No pneumothorax. IMPRESSION: A 78-year-old with: 1. Recurrent pleural effusion. 2. Stage IV breast cancer. 3. Malignant pleural effusion. 4. Status post repositioning of PleurX catheter. PLAN: 1. Continue current treatment regimen. 2. Anticipate transitioning patient back to a closed PleurX system. cc: Johnny Gonzalez MD
[2019-06-05] MEDS: DUONEB (A & A) INH SCH ×3 (03:40→16:11)
[2019-06-05] MEDS: MAXIPIME 1 GM in NS 50 ML IV SCH ×2 (04:39→16:44)
[2019-06-05 06:16] LABS: HEMATOCRIT 34.2 % (37.0-47.0); HEMOGLOBIN 10.6 g/dL (12.0-16.0); MCH 29.8 PG (27-31); MCV 96.1 FL (81-99); MPV 9.4 FL (7.4-10.4); RBC 3.56 XMIL (4.2-5.4); RDW 15.4 % (11.5-14.5); WBC 7.48 X1000 (4.8-10.8)
[2019-06-05 06:39] LABS: ALB/GLOB RATIO 0.7; ALBUMIN 2.6 g/dL (3.5-5.0); CREATININE 1.7 mg/dL (0.5-0.9); POTASSIUM 4.9 mmol/L (3.5-5.1); TOTAL BILIRUBIN 0.25 mg/dL (0.20-1.00); TOTAL PROTEIN 6.4 g/dL (6.3-8.3)
--- NOTE | 2019-06-05 07:41 | Diag Imaging Result Doc PS360 ---
CHEST-PORTABLE - 06/05/2019 INDICATION: L pleur X catheter. COMPARISON: 06/04/2019 FINDINGS: Stable left chest tube. No pneumothorax. Trace left pleural effusion. Stable right chest port. Stable pulmonary vascular congestion. Stable diffuse hazy pulmonary edema. Heart size remains top normal. Stable rounded opacity in the right midlung. IMPRESSION: No change from prior. Electronically signed by Kerwin Magallon 06/05/2019 7:39 AM
[2019-06-05] MEDS: APRESOLINE IV PRN (07:50)
--- NOTE | 2019-06-05 08:10 | PROGRESS NOTE ---
DATE: 06/06/2019 INTERVAL HISTORY: No acute events overnight. She was able to come out of bed and sit in the chair. Her oxygen requirement is minimal. She is breathing well on room air. She is still very anxious, and when I explained to her that she would have to remain inside the hospital for a while, she becomes very upset. She denies any chest pain. Her shortness of breath is better. She ate her meal. She had a bowel movement. She was able to make urine by herself. OBJECTIVE: Vital Signs: Afebrile with temperature of 99 degrees, pulse of 104, respiratory rate 30, blood pressure 160/90, saturating 99% on room air. General: Does not appear in any acute distress. Cachectic with protein energy malnutrition. HEENT: Oral cavity is dry. Lungs: She has better respiratory effort today than yesterday, though it is rapid and shallow with inspiratory crackles, bilateral infrascapular region. There is PleurX catheter connected to tubings on the left anterior axillary line with some soakage of the dressing. No wheeze or rhonchi. Cardiovascular: S1, S2 normal. Tachycardic. Prominent diastolic murmur affecting second intercostal space close to sternal border. No rub or gallop. Abdomen: Soft, nontender. Extremities: Bilateral lower extremity ankle edema. Neurologic: She is alert and oriented x3. She is sitting in the chair. LABORATORY DATA: Suggestive of normal hemoglobin, normal WBC, normal platelet count. Hemoglobin is 10.6. Her BMP suggestive of hyponatremia, resolution of hyperkalemia, hypochloremia, acute kidney injury on chronic kidney disease stage 3. MICROBIOLOGY: No new microbiological data. Sputum culture had normal respiratory nataly. IMAGING: Chest x-ray performed. The report is pending. However, it looks unchanged from prior on my examination. ASSESSMENT AND PLAN: 1. Acute hypoxic respiratory failure due to left-sided malignant pleural effusion, status post ultrasound thoracenteses, after which she developed pneumothorax, surgical removal of left- sided old PleurX catheter through video-assisted thoracoscopic surgery, and placement of new left-sided PleurX catheter on 06/04/2019 because the previous catheter was malfunctioning. Continue PleurX catheter and tubing management as per surgical team. I will stop antibiotics today as she has completed about 5 to 6 days of intravenous antibiotics without definitive evidence of pneumonia. She is on room air now. 2. Hyponatremia, hypochloremia, and acute kidney injury on chronic kidney disease stage 3. This is likely because of poor oral intake as well as the use of diuretics. I am holding her Lasix considering her respiratory status has improved, and follow up with BMP. 3. Others. Continue chlorthalidone for essential hypertension, keeping a close eye over BMP; she has chronic kidney disease stage 3; deep venous thrombosis and pulmonary embolism testing was essentially unremarkable. 4. Metastatic left breast cancer diagnosed in 12/2018 with bilateral malignant pleural effusions. Currently on Abraxane and Xgeva, last therapy being on 05/25/2019. Oncology on board. 5. Disposition. Will continue to monitor the patient. Will consider transitioning her to a PVC unit later today. I will also have Physical Therapy evaluation for the patient's functional status. However, the patient says she would not want to go to rehab and would rather go home in the future. Plan of care discussed with her. All questions have been answered. TIME SPENT: More than 30 minutes were spent in discharging this patient. I updated one of her daughters at bedside extensively and answered all of her questions. I discussed with her about transferring the patient to a PVC unit as per the bed availability. cc: MD EMPERATRIZ Hawk
[2019-06-05] MEDS: CENTRUM SILVER PO SCH (08:30)
[2019-06-05] MEDS: HYGROTON PO SCH (08:30)
[2019-06-05] MEDS: TUMS PO SCH (08:30)
[2019-06-05] MEDS: LOVENOX SUBQ SCH (08:30)
[2019-06-05] MEDS: VITAMIN D PO SCH (08:30)
[2019-06-05] MEDS: ZYRTEC PO SCH (08:30)
[2019-06-05] MEDS: ATIVAN IV PRN ×2 (09:04→19:26)
[2019-06-05] MEDS ORDERED: LASIX IV ONE (11:55)
--- NOTE | 2019-06-05 12:18 | PULMONOLOGY PROGRESS NOTE ---
DATE: 05/31/2019 SUBJECTIVE: The patient has had more anxiety this morning. She has mild work of breathing. OBJECTIVE: Vital Signs: The patient has been afebrile for the last 24 hours. Blood pressure 129/69, heart rate 96, respiratory rate 20, oxygen saturation 100% on 2 L per nasal cannula. HEENT: Pupils are equal and reactive. Oropharynx appears clear. Neck is supple. Chest reveals shallow breath sounds bilaterally, with a chest tube in the left hemithorax. Cardiac Examination: S1-S2. Abdomen is soft. Extremities reveal generalized edema of the lower extremities. Laboratories: White blood count 7.48, hemoglobin 10.6, platelet count 370,000. Sodium 128, potassium 4.9, bicarbonate 20, BUN 33, creatinine 1.7. Chest x-ray reveals trace left effusion. Mild vascular congestion/edema. No change from yesterday. IMPRESSION: A 78-year-old with: 1. Metastatic stage IV breast cancer. 2. Malignant pleural effusion. 3. Status post repositioning of PleurX catheter. DISCUSSION: A 78-year-old with problems outlined above. Patient's daughter appears angry that her mother is not getting better. She believes it is because she is in the ICU and in a bed. I have explained to her that her mother is sick and that getting her out of bed will not make her significantly better, and she is significantly weak. We will attempt to transfer her to the PVC unit today. PLAN: 1. Continue current PleurX catheter management. We will transition to a closed loop system when possible. 2. Small dose of Lasix today to see if this helps decrease her dyspnea. 3. Her overall prognosis is guarded to poor. It is not clear that her daughter understands or accepts how ill that Ms. Lama is. cc: Johnny Gonzalez MD
[2019-06-05] MEDS: SODIUM BICARBONATE PO SCH ×2 (12:22→17:32)
--- NOTE | 2019-06-05 13:47 | PROGRESS NOTE ---
DATE: 06/05/2019 Ms. Lama has metastatic breast cancer. Bob, Dr. Stephenson repositioned a PleurX catheter. It has been hooked to the Thoraklex, but today I capped it off because it is not draining that much. She has had some problems with work of breathing and shortness of breath. Her chest x-ray does not suggest a large pleural effusion but disease within the lung itself. We will get a chest x-ray tomorrow. She may be transferred from the ICU earlier today. I spoke with her daughter at the bedside. I re-dressed the exit site of her PleurX catheter. cc: Kaylyn Chou MD
[2019-06-05] MEDS: NORCO-10 PO PRN (15:41)
[2019-06-05] MEDS: REMERON PO SCH (20:25)
[2019-06-05] MEDS: AMBIEN PO SCH (20:25)
[2019-06-06 06:13] LABS: CALCIUM 7.6 mg/dL (8.8-10.2); MAGNESIUM 1.6 mg/dL (1.5-2.7)
--- NOTE | 2019-06-06 07:04 | Diag Imaging Result Doc PS360 ---
CHEST-PORTABLE - 06/06/2019 INDICATION: abnormal exam COMPARISON: 06/05/2019 FINDINGS: Stable left chest tube. Stable right chest port. Stable cardiomegaly and pulmonary vascular congestion. Stable hazy interstitial pulmonary edema bilaterally. Stable trace bilateral pleural effusions. No pneumothorax. IMPRESSION: No change from prior. Electronically signed by Kerwin Magallon 06/06/2019 7:02 AM
--- NOTE | 2019-06-06 07:51 | GENERAL SURGERY PROGRESS NOTE ---
DATE: 06/06/2019 SUBJECTIVE: The patient seems to be resting okay. She has a little bit of drainage around her PleurX catheter. OBJECTIVE: Vital Signs: Patient is currently afebrile. Pulse 97, respiratory rate listed at 29, although she does not seem to have any increased labored breathing. Blood pressure 120/64. General: Resting comfortably. Cardiovascular: Regular rate and rhythm. Lungs: PleurX catheter site with some saturation. No increased labored breathing. Abdomen: Soft, nontender, nondistended. LABORATORY: None this morning as of yet. Chest x-ray pending for this morning. ASSESSMENT AND PLAN: A 78-year-old female status post repositioning of PleurX catheter. Postoperative state at this time. We will follow up with a.m. chest x-ray. We will get the nurses to reinforce the dressing and change the dressing to the PleurX catheter site. We will continue to follow her. cc: Akira Stephenson MD
--- NOTE | 2019-06-06 08:19 | PROGRESS NOTE ---
DATE: 06/06/2019 INTERVAL HISTORY: She was transferred out of ICU to [facility]. She was given additional dose of Lasix yesterday since she made good urine. However, it is not charted. In the morning time, she is sitting in the chair by the bedside, and appears short of breath intermittently. The patient's daughter is at bedside. She wants me to give her something to help with her shortness of breath. She denies any chest pain. She is very drowsy. VITALS: Temperature 97.9 degrees, pulse 97, respiratory 29, blood pressure 120/64, and saturating 100% on 2 L nasal cannula. PHYSICAL EXAMINATION: She is in mild distress because of shortness of breath. Oral cavity is dry. She has decreased air entry with inspiratory crackles left infrascapular region. Adequate air entry on right hemithorax with intermittent inspiratory crackles diffusely. She has a left- sided anterior axillary line PleurX catheter, which is not hooked up with any system. S1, S2 normal. No murmur. S1 and S2 normal. Tachycardic. Prominent diastolic murmur affecting second intercostal place close to sternal border. No rub or gallop. Abdomen is soft and nontender. Lower extremity edema extending up to midshin level. She is alert. She is following commands, but she appears very ill. According to daughter, she was able to use bedside commode. LABORATORY: Suggestive of worsening hyponatremia, hypochloremia, worsening acute kidney injury. MICROBIOLOGY: No data. IMAGING: Chest x-ray suggests persistent bilateral pulmonary edema. Stable bilateral pleural effusions. ASSESSMENT AND PLAN: 1. Acute hypoxic respiratory failure due to left-sided malignant pleural effusion, initially requiring ultrasound-guided thoracenteses, and later on repositioning and placement of a new PleurX catheter through VATS on 06/04. Continue PleurX catheter management as per surgical team, status post intravenous cefepime. Her oxygen requirement is on the lower side. However, she is still short of breath likely because of pleurisy associated with VATS procedure as well as her lung metastasis. 2. Hyponatremia, hypochloremia, acute kidney injury on chronic kidney disease stage 3 because of poor oral intake as well as use of diuretic. Continue to hold antihypertensive and give diuretic as needed. 3. Others: Continue to hold chlorthalidone considering her blood pressure is mostly in acceptable range; DVT and PE workup was essentially unremarkable. 4. Metastatic left breast cancer with lung metastasis diagnosed in December of 2018 with bilateral malignant pleural effusions. Currently, on Abraxane and Xgeva last therapy on 05/25/2019. The patient appears to be in significant shortness of breath and has physically deconditioned. Oncology on board. I will also have palliative care team evaluate the patient to have long- term goals of care discussion. 5. Disposition: The patient is anxious about going home, but her shortness of breath is concerning. I am keeping her inside the hospital to evaluate for need for IV diuresis based on her course as well as monitoring of her electrolytes. If I discharge her, she is at high risk of readmission with worsening shortness of breath. I will also have palliative care team hold further goals of care. Today, when I ask the patient and her daughter, the patient had expressed that she wanted everything to be done for her, and she wanted to continue with the treatment. cc: López Mcnair MD
[2019-06-06] MEDS: ZYRTEC PO SCH (09:01)
[2019-06-06] MEDS: VITAMIN D PO SCH (09:01)
[2019-06-06] MEDS: CENTRUM SILVER PO SCH (09:01)
[2019-06-06] MEDS: MAGNESIUM SULFATE 2 GM/S.W.I. 2 GM/50 ML IVPB IV SCH ×2 (09:01→12:34)
[2019-06-06] MEDS: LOVENOX SUBQ SCH (09:01)
[2019-06-06] MEDS: VENTOLIN HFA INH PRN ×2 (09:46→18:02)
--- NOTE | 2019-06-06 13:25 | HEMO/ONC PROGRESS NOTE ---
DATE: 06/06/2019 SUBJECTIVE: Ms. Lama is sitting up in her bedside chair this morning. She does appear short of breath. She speaks in short sentences. She does not appear to feel well. According to the patient and her daughter, they wish to go home today. Her daughter states between her 7 daughters, she can be cared for at home. She also has home health nurses that come in. Patient does not feel that she is going to improve any while in the hospital. It is their understanding that no more treatment for her shortness of breath is going to be done. She does state that she is breathing better since the thoracentesis but her shortness of breath has not improved since draining the fluid. OBJECTIVE: Vital Signs: Temperature 97.9 degrees, pulse rate 98, respiratory rate 28, blood pressure 173/92, O2 saturation 100% on 2 L via nasal cannula. She reports 0/10 pain. Physical Examination: General: This is a chronically ill-appearing female in mild respiratory distress. HEENT: Anicteric. PERRLA. Oral mucosa is dry. Cardiovascular: Normal S1, S2. Heart rate and rhythm elevated. No murmurs, gallops, or rubs noted. Respiratory: Diminished breath sounds with inspiratory crackles noted. Abdomen: Soft, nontender, without distention. Bilateral lower extremities are edematous. Laboratory Data: Sodium 124, creatinine 2.0, calcium 7.6. No CBC today. Chest x-ray, stable hazy interstitial pulmonary edema bilaterally. Stable trace bilateral pleural effusion. No pneumothorax. ASSESSMENT: 1. Acute hypoxic respiratory failure due to left-sided malignant pleural effusion, status post thoracentesis. 2. Metastatic triple negative left breast cancer, currently on chemotherapy. 3. Chronic renal insufficiency/acute kidney injury stage 3. PLAN: Dr. Gonzalez will discuss this with Dr. Mcnair. Continue treatment per medical management. Continue to make the patient comfortable. Dictated by KANCHAN Andrew for Johnathan Gonzalez MD As above. D/W Dr. Gonzalez. Patients condition is worsening from a respiratory standpoint. Discussed comfort measures and agreeable. Will get hospice on board. Johnathan Gonzalez MD. cc: Johnathan Gonzalez MD [facility]ITALKasey
[2019-06-06] MEDS: TUMS PO SCH (15:15)
[2019-06-06] MEDS: ATIVAN IV PRN (17:41)
[2019-06-06] MEDS: AMBIEN PO SCH (21:18)
[2019-06-06] MEDS: REMERON PO SCH (21:18)
[2019-06-07 00:31] VITALS: BP 125/53
--- NOTE | 2019-06-07 08:41 | PULMONOLOGY PROGRESS NOTE ---
DATE: 06/07/2019 SUBJECTIVE: The patient has had a rough day. She has been anxious and short of breath. She requests to go home. OBJECTIVE: Vital Signs: The patient has been afebrile for the last 24 hours. Blood pressure 176/74, heart rate 96, respiratory rate 25. Oxygen saturation 98% on 2 L per nasal cannula. HEENT: Pupils are equal and reactive. Oropharynx is clear. Neck: Is supple. Chest: Reveals shallow breath bilaterally with faint crackles in the bases. Cardiac: S1, S2, increased rate. Abdomen: Is soft. Extremities: Reveal trace edema. LABORATORIES: Chest x-ray reveals cardiomegaly with stable vascular congestion and no change from 06/05/2019. Sodium 124, potassium 4.0, chloride 89, bicarbonate 22, BUN 36, creatinine 2.0. IMPRESSION: A 78-year-old with: 1. Metastatic breast cancer. 2. Pleural effusions. 3. Status post repositioning of PleurX catheter. 4. Hypoxemic respiratory failure. 5. Declining performance status. DISCUSSION: Despite draining for the patient's pleural fluid her pulmonary status has declined. It is possible that she did not tolerate surgery well and has lost her reserve. It is also possible that she may be having some reexpansion lung injury making her dyspnea more severe. Overall, her prognosis is poor. It is not clear that she will significantly improve from this juncture. RECOMMENDATION: 1. Continue to drain PleurX catheter p.r.n. 2. Hold additional Lasix dosing. She is becoming prerenal. 3. Oxygen as needed for hypoxemic respiratory failure. 4. Agree with palliative care consult/hospice. Her prognosis appears poor. cc: Johnny Gonzalez MD
[2019-06-07] MEDS ORDERED: MAALOX PLUS LIQUID PO ONE (09:06)
--- NOTE | 2019-06-07 10:02 | GENERAL SURGERY PROGRESS NOTE ---
DATE: 06/07/2019 SUBJECTIVE: Patient seems to be doing about the same. OBJECTIVE: Vital Signs: Patient is currently afebrile. Her vital signs are stable. General: No acute distress. Cardiovascular: Regular rate and rhythm. Lungs: No increased labored breathing. Abdomen: Soft, nontender, and nondistended. ASSESSMENT AND PLAN: A 78-year-old status post reposition of PleurX catheter. Postoperative state at this time. Her chest x-ray from the morning yesterday was stable. She otherwise is doing about the same from a surgical point of view, and once everything can be arranged she can be discharged. We will defer to the hospitalist. cc: Akira Stephenson MD
[2019-06-07] MEDS: ZYRTEC PO SCH (11:19)
[2019-06-07] MEDS: CENTRUM SILVER PO SCH (11:19)
[2019-06-07] MEDS: LOVENOX SUBQ SCH (11:19)
[2019-06-07] MEDS: VITAMIN D PO SCH (11:20)
[2019-06-07] MEDS: TUMS PO SCH (11:20)
--- NOTE | 2019-06-07 13:08 | HEMO/ONC PROGRESS NOTE ---
DATE: 06/07/2019 SUBJECTIVE: Ms. Lama is in her bed this morning. She appears very anxious and very uncomfortable. She is short of breath. Her daughter is trying to feed her. The patient states that it is hurting her stomach. She is agitated. Nursing staff is preparing for her to go home today. OBJECTIVE: Vital Signs: Temperature 97.5 degrees, pulse rate 88, respiratory rate 24, blood pressure 125/53, O2 saturation 95% on nasal cannula at 2 L. The patient did not appear comfortable. General: Ill-appearing, elderly female, in mild respiratory distress. HEENT: Sclerae anicteric. PERRLA. Oral mucosa is dry. Cardiovascular: S1, S2 normal. Heart rate and rhythm elevated. Respiratory: Shallow, rapid breathing. Diminished at bases. Inspiratory crackles noted. Abdomen: Soft, slightly distended. Extremities: Bilateral lower extremity edema noted. LABORATORY DATA: There are no labs today. ASSESSMENT: 1. Acute hypoxic respiratory failure due to left-sided malignant pleural effusion, status post thoracentesis and PleurX catheter repositioning. 2. Metastatic triple-negative breast cancer, currently on chemotherapy. 3. Chronic renal insufficiency/acute kidney injury, stage III. PLAN: The plan is for the patient to go home with her daughters today on hospice care. This is the patient and the family's request. We will follow up with the patient on an outpatient basis as needed. Dictated by KANCHAN Andrew for Johnathan Gonzalez MD cc: Johnathan Gonzalez MD MTDD
--- NOTE | 2019-06-07 23:27 | DISCHARGE SUMMARY ---
ADMISSION DATE: 05/31/2019 DISCHARGE DATE: 06/07/2019 DISCHARGE DISPOSITION: Home with hospice. DISCHARGE CONDITION: The patient is in mild to moderate distress because of shortness of breath. She is drowsy. She has significant functional decline. Plan is to take her home on home hospice. The patient's daughter is at bedside. DISCHARGE DIAGNOSES: 1. Acute hypoxic respiratory failure. 2. Left-sided malignant pleural effusion and malfunctioning PleurX catheter. 3. Hyponatremia, hypochloremia, and acute kidney injury. 4. Community-acquired pneumonia. OTHER DIAGNOSES: 1. Metastatic breast cancer with malignant pleural effusion. 2. Recurrent pleural effusions requiring PleurX catheters. 3. Essential hypertension. 4. Anxiety. DISCHARGE MEDICATIONS: 1. Zolpidem 10 mg at nighttime. 2. Mirtazapine 50 mg at nighttime. 3. Alprazolam 1 mg as needed for anxiety. 5. Furosemide 40 mg daily as needed for shortness of breath. 6. [place] 10 one tablet t.i.d. as needed for pain. 7. Phenergan 25 mg every 6 hours as needed for nausea and vomiting. 8. Reglan 10 mg every 6 hours as needed for nausea and vomiting. 9. Albuterol sulfate 1 puff 4 times a day as needed for shortness of breath. 10. Fluticasone nasal spray, 1 spray inhaled as needed. 11. Cetirizine 10 mg daily. VITALS: At the time of discharge, temperature 97.5 degrees, pulse 88, respiratory rate 24, blood pressure 125/53, saturating 95% on 2 L nasal cannula. PHYSICAL EXAMINATION: General: Patient is in mild to moderate distress. HEENT: Oral cavity is dry. Lungs: She has decreased air entry with inspiratory crackles left infrascapular region. She does have inspiratory crackles on the right infrascapular region as well. No wheeze or rhonchi. Cardiovascular: S1, S2 normal. Tachycardic. No murmur, rub, or gallop, except diastolic murmur affecting second intercostal space. Abdomen: Soft, nontender. Anterior axillary line on the left has a PleurX catheter. Extremities: Bilateral lower extremity edema extending up to knees. Neurologic: She is alert. She is, however, less alert than yesterday. She is moving all extremities spontaneously. LABS: At the time of discharge, WBC 7.4, hemoglobin 10.6, platelet 370,000. Sodium 124, chloride 89, BUN 36, creatinine 2. Magnesium is 1.6. Significant microbiology: Blood cultures, sputum culture, pleural fluid culture, and urine culture did not have any growth significant. IMAGIN. During hospital admission: Chest CT on May 31 had trace right and moderate left pleural effusions, small and indeterminate right-sided pulmonary nodules, fibrotic appearing opacities in the lung bilaterally. Slight decrease in the size of the known left breast cancer. 2. Lung V/Q scan on June 02 had low probability for pulmonary embolism. 3. Extremity venous study did not have any superficial DVT. 4. Chest x-ray on June 06 had stable left chest. Stable chest port. Stable cardiomegaly and pulmonary vascular congestion. Stable interstitial pulmonary edema bilaterally. Stable bilateral pleural effusions without any pneumothorax. 5. EKG has normal sinus rhythm, right bundle branch block. PROCEDURES DURING HOSPITAL ADMISSION: During hospital admission on 05/31/2019, patient underwent left video-assisted thoracoscopic surgery, removal of left PleurX catheter and placement of left PleurX catheter through different incision. HOSPITAL COURSE SUMMARY: Ms. Lama is a 78-year-old lady with past medical history of metastatic breast cancer with malignant pleural effusions on the right, requiring PleurX catheter, which was later on discontinued, who had subsequently developed left-sided malignant pleural effusion requiring left-sided PleurX catheter, came in with chief complaints of increasing shortness of breath. CT scan had detected worsening left-sided pleural effusion, so the hospitalist team was consulted for further management. The patient was started on intravenous Lasix and intravenous antibiotics for suspected pneumonia as well. The CT scan had detected loculation of pleural fluid, which was not drained by PleurX catheter. The surgery team was consulted and she underwent video-assisted thoracoscopy surgery with removal of old PleurX and placement of a new PleurX catheter through a different incision on the left side. Postoperatively, the PleurX catheter was hooked up with the tubing system as well to allow drainage of the pneumothorax. Noticeably, before PleurX catheter replacement was planned, was performed by VATS. She had undergone ultrasound-guided thoracentesis with development of pneumothorax as well. In any case, after VATS procedure, her respiratory status did not improve and she kept on complaining of shortness of breath. She had rapid shallow breath requiring oxygen. It was thought that her shortness of breath was related to poor functional status, her inability to tolerate the surgery, and decrease in lung reserve. Despite intravenous diuresis, her shortness of breath did not improve. In fact, she had started developing hyponatremia and acute kidney injury. Understanding the metastatic nature of her breast cancer, declining functional status, the patient and her family had wished to go home on home hospice. Oncology team was on board throughout the process. More than 30 minutes spent discharging this patient. CONSULTANTS DURING ADMISSION: 1. General surgery Dr. Stephenson. 2. Oncology, Dr. Gonzalez. 3. Pulmonology, Dr. Baumann. cc: López Mcnair MD MTDD
== END 2019-06-07 11:30 | disposition hospice, home (50) | DRG 981 ==
LOC: SUPCPDRO → ED 00:24 → SUATTDRO 04:25 → EDIPHOLD 04:25 → 4N 08:23 → ICU 06-03 17:40 → 2N 06-05 14:42
PROVIDERS: ATTEND Internal Medicine
PROC: GE.THRS (2019-06-03 14:15)